=== PATIENT | female | born 1970 | race Caucasian/White ===

== ENCOUNTER 2017-10-19 14:29 | Outpatient (CLI) | payer MEDICAID ==
[2017-10-19 17:43] LABS: BASOPHILS # (AUTO) 0.1 10^3/uL (0.0-0.1); EOSINOPHILS # (AUTO) 0.1 10^3/uL (0.0-0.7); EOSINOPHILS % (AUTO) 1.7 %; HGB - HEMOGLOBIN 12.8 g/dL (12.0-16.0); LYMPHOCYTES # (AUTO) 2.2 10^3/uL (1.5-3.5); LYMPHOCYTES % (AUTO) 29.1 %; MEAN CORPUSCULAR HEMOGLOBIN 29.8 pg (27.0-31.0); MEAN CORPUSCULAR VOLUME 90.3 fL (81.0-99.0); MONOCYTES # (AUTO) 0.4 10^3/uL (0.0-1.0); MONOCYTES % (AUTO) 5.3 %; NEUTROPHILS # (AUTO) 4.7 10^3/uL (1.5-6.6); NEUTROPHILS % (AUTO) 62.9 %; PLT - PLATELET COUNT 257 10^3/uL (130-450); RED BLOOD COUNT 4.31 10^6/uL (4.20-5.40); RED CELL DISTRIBUTION WIDTH 12.9 % (12.0-15.0); WHITE BLOOD COUNT 7.5 x10^3/uL (4.8-10.8)
[2017-10-19 18:25] LABS: HB2 TOTAL 13.7 g/dL; HEMOGLOBIN A1C 1.12 g/dL; HEMOGLOBIN A1C % 9.6 % (4.6-6.2)
[2017-10-19 19:27] LABS: ALBUMIN 3.7 g/dL (3.2-5.5); ALBUMIN/GLOBULIN RATIO 1.1 (1.0-2.2); ALKALINE PHOSPHATASE 46 IU/L (42-121); ALT ALANINE AMINOTRANSFERASE 29 IU/L (10-60); AST ASPARTATE AMINOTRANSFERASE 22 IU/L (10-42); BILIRUBIN,TOTAL 0.4 mg/dL (0.2-1.0); BUN - BLOOD UREA NITROGEN 12 mg/dL (6-20); CALCIUM 8.7 mg/dL (8.5-10.3); CARBON DIOXIDE - CO2 28 mmol/L (21-32); CHLORIDE 102 mmol/L (101-111); CREATININE 0.7 mg/dL (0.4-1.0); GFR - MDRD 90 (>89); GLUCOSE 251 mg/dL (70-100); SODIUM 137 mmol/L (135-145); TOTAL PROTEIN 7.1 g/dL (6.7-8.2)
== END 2017-10-19 14:30 | disposition home or self-care (01) ==
LOC: LAB.F 14:29
PROVIDERS: ATTEND Nurse Practitioner Family
DX: E11.9 Type 2 diabetes mellitus without complications (principal)
CPT/HCPCS: 36415; 80053; 82043; 83036; 84443; 85025

== ENCOUNTER 2018-01-16 09:53 | Outpatient (CLI) | payer MEDICAID ==
[2018-01-16 19:23] LABS: HB2 TOTAL 14.1 g/dL; HEMOGLOBIN A1C 1.04 g/dL; HEMOGLOBIN A1C % 8.9 % (4.6-6.2)
[2018-01-16 19:26] LABS: ALBUMIN 3.9 g/dL (3.2-5.5); ALBUMIN/GLOBULIN RATIO 1.2 (1.0-2.2); ALKALINE PHOSPHATASE 54 IU/L (42-121); ALT ALANINE AMINOTRANSFERASE 21 IU/L (10-60); AST ASPARTATE AMINOTRANSFERASE 17 IU/L (10-42); BILIRUBIN,TOTAL 0.4 mg/dL (0.2-1.0); BUN - BLOOD UREA NITROGEN 11 mg/dL (6-20); CALCIUM 8.7 mg/dL (8.5-10.3); CARBON DIOXIDE - CO2 28 mmol/L (21-32); CHLORIDE 101 mmol/L (101-111); CHOL/HDL RATIO 6.2 (<4.4); CHOLESTEROL 216 mg/dL; CREATININE 0.6 mg/dL (0.4-1.0); GFR - MDRD 108 (>89); GLUCOSE 177 mg/dL (70-100); HDL CHOLESTEROL 35 mg/dL; LDL CHOLESTEROL,CALCULATED 135 mg/dL; LDL/HDL RATIO 3.9 (<4.4); SODIUM 136 mmol/L (135-145); TOTAL PROTEIN 7.2 g/dL (6.7-8.2); VLDL CHOLESTEROL 46 mg/dL
== END 2018-01-16 09:54 | disposition home or self-care (01) ==
LOC: LAB.F 09:53
PROVIDERS: ATTEND Nurse Practitioner Family
DX: E11.9 Type 2 diabetes mellitus without complications (principal)
CPT/HCPCS: 36415; 80053; 80061; 83036; 83721

== ENCOUNTER 2018-02-17 10:18 | Emergency (ER) | payer MEDICAID ==
--- NOTE | 2018-02-17 10:49 | ED Physician Documentation ---
PD HPI ABD PAIN - Stated complaint Stated Complaint: LOWER ABD PX - Chief complaint Chief Complaint: Abd Pain - History obtained from History obtained from: Patient - History of Present Illness Timing - onset: Yesterday Timing - duration: Days (1) Timing - details: Gradual onset, Still present Quality: Sharp, Pain Location: RLQ Radiation: Lower back Improved by: Laying still Worsened by: Breathing, Position, Palpation Associated symptoms: No: Fever, Nausea, Vomiting, Loss of appetite Similar symptoms before: Has not had sx before Recently seen: Not recently seen Review of Systems Constitutional: denies: Fever Eyes: denies: Decreased vision Ears: denies: Ear pain Nose: denies: Congestion Throat: denies: Sore throat Cardiac: denies: Chest pain / pressure Respiratory: denies: Dyspnea, Cough GI: reports: Abdominal Pain, Nausea : denies: Dysuria, Frequency Skin: denies: Rash Musculoskeletal: denies: Neck pain, Back pain, Extremity pain PD PAST MEDICAL HISTORY - Past Medical History Cardiovascular: Hypertension Respiratory: Asthma Endocrine/Autoimmune: Type 1 diabetes : Nocturia HEENT: None Psych: Depression - Past Surgical History 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 HEENT: Tonsil/Adenoidectomy - Present Medications Home Medications: Ambulatory Orders Medication Instructions Recorded Confirmed Insulin Glargine,Hum.rec.anlog 70 unit SQ QDBREAKFAST 01/21/14 12/20/14 [Lantus] Tramadol HCl [Ultram] 50 mg PO Q4-6H 01/21/14 12/20/14 Losartan [Cozaar] 25 mg PO DAILY 12/20/14 12/20/14 Linton-3 Fatty Acids [Fish Oil] 500 mg PO DAILY 12/20/14 12/20/14 Cyclobenzaprine [Flexeril] 10 mg PO 02/17/18 Furosemide [Lasix] 25 mg PO 02/17/18 Paroxetine HCl [Paxil] 100 mg PO 02/17/18 oxyCODONE/ACET 5/325 [Percocet 5 1 - 2 each PO Q4-6H PRN #20 tablet 02/17/18 mg/325 mg] - Allergies Allergies/Adverse Reactions: Allergies Allergy/AdvReac Type Severity Reaction Status Date / Time latex Allergy Intermediate Rash Verified 02/17/18 10:25 Sulfa (Sulfonamide Allergy Rash Verified 02/17/18 10:25 Antibiotics) acetaminophen [From Vicodin] AdvReac Emesis Verified 02/17/18 10:25 codeine AdvReac Emesis Verified 02/17/18 10:25 hydrocodone bitartrate * AdvReac Emesis Verified 12/20/14 14:59 [From Vicodin] - Social History Does the pt smoke?: No Smoking Status: Never smoker PD ED PE NORMAL - Vitals Vital signs reviewed: Yes (hypertensive ) - General General: Alert and oriented X 3, No acute distress, Well developed/nourished - HEENT HEENT: Atraumatic, PERRL, EOMI - Neck Neck: Supple, no meningeal sign - Cardiac Cardiac: RRR, No murmur - Respiratory Respiratory: No respiratory distress, Clear bilaterally - Abdomen Abdomen: Soft, Other (RLQ tenderness to palpation with referred tenderness. There is no gaurding ) - Back Back: No CVA TTP, No spinal TTP - Derm Derm: Normal color, Warm and dry, No rash - Extremities Extremities: No deformity, No edema - Neuro Neuro: No motor deficit, No sensory deficit Eye Opening: Spontaneous Motor: Obeys Commands Verbal: Oriented GCS Score: 15 - Psych Psych: Normal mood, Normal affect Results - Vitals Vitals: Vital Signs - 24 hr 02/17/18 02/17/18 02/17/18 10:23 12:38 13:23 Temperature 35.9 C L Heart Rate 78 71 64 Respiratory 20 20 16 Rate Blood Pressure 172/82 H 159/70 H 155/76 H O2 Saturation 99 99 99 Oxygen O2 Source Room air - Labs Labs: Laboratory Tests 02/17/18 02/17/18 02/17/18 10:50 10:50 10:50 WBC 6.5 RBC 4.58 Hgb 13.5 Hct 40.0 MCV 87.4 MCH 29.6 MCHC 33.9 RDW 13.6 Plt Count 272 MPV 7.8 L Neut # (Auto) 3.9 Lymph # (Auto) 1.9 Caldwell # (Auto) 0.4 Eos # (Auto) 0.1 Baso # (Auto) 0.1 Absolute Nucleated RBC 0.01 Nucleated RBC % 0.1 Sodium 138 Potassium 4.0 Chloride 102 Carbon Dioxide 29 Anion Gap 7.0 BUN 16 Creatinine 0.7 Estimated GFR (MDRD) 90 Glucose 203 H Calcium 9.7 Total Bilirubin 0.7 AST 20 ALT 23 Alkaline Phosphatase 55 Total Protein 7.6 Albumin 4.1 Globulin 3.5 Albumin/Globulin Ratio 1.2 Lipase 42 Urine Color YELLOW Urine Clarity HAZY Urine pH 5.5 Ur Specific Burt >=1.030 H Urine Protein 100 H Urine Glucose (UA) 100 H Urine Ketones NEGATIVE Urine Occult Blood NEGATIVE Urine Nitrite NEGATIVE Urine Bilirubin NEGATIVE Urine Urobilinogen 0.2 (NORMAL) Ur Leukocyte Esterase NEGATIVE Urine RBC None Seen Urine WBC 0-3 Ur Squamous Epith Cells RARE Squamous Urine Bacteria Rare Urine Mucus Few Strands Ur Microscopic Review INDICATED Urine Culture Comments NOT INDICATED - Rads (name of study) CT abdomen and pelvis with Radiology: Prelim report reviewed (Impression: 1. Right corpus luteal 1.6 cm cyst. 2 Appendix not identified but no periapical inflammatory changes. 3 Hepatomegaly.), EMP read indepedently, See rad report PD MEDICAL DECISION MAKING - ED course Complexity details: reviewed old records, reviewed results, re-evaluated patient , considered differential, d/w patient ED course: 48-year-old female with right lower quadrant abdominal pain has been eating well and CT scan does not show the appendix. She does not have any apical inflammatory changes. She does have evidence of a right corpus luteal cyst. She is administered Toradol 30 mg intravenously. Departure - Departure Disposition: 01 Home, Self Care Clinical Impression: Cyst of ovary Qualifiers: Laterality: right Qualified Code(s): N83.201 - Unspecified ovarian cyst, right side Condition: Stable Instructions: ED Cyst Ovarian Follow-Up: Juju Mann ARNP [Primary Care Provider] - Prescriptions: oxyCODONE/ACET 5/325 [Percocet 5 mg/325 mg] 1 - 2 each PO Q4-6H PRN #20 tablet PRN Reason: Pain Forms: Activity restrictions Discharge Date/Time: 02/17/18 13:31
[2018-02-17 10:58] LABS: BASOPHILS # (AUTO) 0.1 10^3/uL (0.0-0.1); BASOPHILS % (AUTO) 1.1 %; BILIRUBIN,URINE NEGATIVE (NEGATIVE); CLARITY,URINE HAZY (CLEAR); EOSINOPHILS # (AUTO) 0.1 10^3/uL (0.0-0.7); EOSINOPHILS % (AUTO) 1.5 %; GLUCOSE, URINE (UA) 100 mg/dL (NEGATIVE); HGB - HEMOGLOBIN 13.5 g/dL (12.0-16.0); KETONES,URINE (UA) NEGATIVE (NEGATIVE); LEUKOCYTE ESTERASE, URINE NEGATIVE (NEGATIVE); LYMPHOCYTES # (AUTO) 1.9 10^3/uL (1.5-3.5); MEAN CORPUSCULAR HEMOGLOBIN 29.6 pg (27.0-31.0); MEAN CORPUSCULAR HGB CONC 33.9 g/dL (32.0-36.0); MEAN CORPUSCULAR VOLUME 87.4 fL (81.0-99.0); MEAN PLATELET VOLUME 7.8 fL (7.9-10.8); MONOCYTES # (AUTO) 0.4 10^3/uL (0.0-1.0); MONOCYTES % (AUTO) 6.9 %; NEUTROPHILS # (AUTO) 3.9 10^3/uL (1.5-6.6); NEUTROPHILS % (AUTO) 60.5 %; NITRITE,URINE NEGATIVE (NEGATIVE); OCCULT BLOOD,URINE NEGATIVE (NEGATIVE); PH,URINE 5.5 PH (5.0-7.5); PLT - PLATELET COUNT 272 10^3/uL (130-450); PROTEIN,URINE 100 mg/dL (NEGATIVE); RED BLOOD COUNT 4.58 10^6/uL (4.20-5.40); RED CELL DISTRIBUTION WIDTH 13.6 % (12.0-15.0); UROBILINOGEN,URINE 0.2 (NORMAL) E.U./dL (NORMAL); WHITE BLOOD COUNT 6.5 x10^3/uL (4.8-10.8)
[2018-02-17 11:13] LABS: BACTERIA,URINE Rare /HPF (None Seen); MUCUS,URINE Few Strands; RBC,URINE None Seen /HPF (0-5); SQUAMOUS EPITHELIAL CELL,UR RARE Squamous (<= Few)
[2018-02-17 11:16] LABS: ALBUMIN 4.1 g/dL (3.2-5.5); ALBUMIN/GLOBULIN RATIO 1.2 (1.0-2.2); BILIRUBIN,TOTAL 0.7 mg/dL (0.2-1.0); CALCIUM 9.7 mg/dL (8.5-10.3); CREATININE 0.7 mg/dL (0.4-1.0); TOTAL PROTEIN 7.6 g/dL (6.7-8.2)
[2018-02-17] MEDS ORDERED: IOPAMIDOL-300 100 ML VIAL ONE (11:16)
[2018-02-17] MEDS ORDERED: IOPAMIDOL-300 100 ML VIAL IVP ONE (12:00)
[2018-02-17] MEDS ORDERED: KETOROLAC 60 MG/2 ML VIAL IVP STA (12:33)
--- NOTE | 2018-02-17 12:41 | CT Report ---
EXAM: CT ABDOMEN AND PELVIS EXAM DATE: 02/17/2018 12:02 PM. CLINICAL HISTORY: RLQ pain/tenderness. COMPARISONS: None. TECHNIQUE: Routine helical CT imaging was performed through the abdomen and pelvis. IV contrast: 100 cc Isovue-300. Enteric contrast: No. Reconstructions: Coronal and sagittal. In accordance with CT protocol optimization, one or more of the following dose reduction techniques w ere utilized for this exam: automated exposure control, adjustment of mA and/or KV based on patient s ize, or use of iterative reconstructive technique. FINDINGS: Lung Bases: Unremarkable. Elevated right hemidiaphragm Liver: Enlarged 20 cm. Gallbladder/Bile Ducts: Post cholecystectomy Spleen: Normal. Pancreas: Normal. Adrenal Glands: Normal. Kidneys: Normal. No masses or hydronephrosis. Peritoneal Cavity/Bowel: Tiny fat-containing umbilical hernia. No free fluid, free air or adenopathy. No masses or acute inflammatory process. Appendix is not identified but no pericecal inflammatory ch anges. Pelvic Organs: Right corpus luteal 1.6 cm cyst. Bladder unremarkable. Uterus unremarkable. Vasculature: No aneurysms or other significant abnormality. Bones: DJD spine Other: None. IMPRESSION: 1. Right corpus luteal 1.6 cm cyst. 2. Appendix not identified but no pericecal inflammatory changes. 3. Hepatomegaly RADIA Referring Provider Line: [phone] SITE ID: [id number]
[2018-02-17 13:24] VITALS: BP 155/76
== END 2018-02-17 13:31 | disposition home or self-care (01) ==
LOC: ED 10:18
DX: N83.201 Unspecified ovarian cyst, right side (principal)
CPT/HCPCS: 36415; 74177; 80053; 81001; 83690; 85025; 96374; 99283; 99284; Q9967; 81003; 87086

== ENCOUNTER 2018-02-21 08:00 | Outpatient (CLI) | payer MEDICAID | END 2018-02-21 08:01 | disposition home or self-care (01) | LOC: LAB.R 08:00 | PROVIDERS: ATTEND Nurse Practitioner Obstetrics & Gynecology | DX: N89.9 Noninflammatory disorder of vagina, unspecified (principal) | CPT/HCPCS: 87480; 87510; 87660 ==

== ENCOUNTER 2018-02-21 21:57 | Outpatient (CLI) | payer MEDICAID ==
--- NOTE | 2018-02-21 23:06 | Ultrasound Report ---
EXAM: PELVIC ULTRASOUND EXAM DATE: 02/21/2018 10:13 PM. CLINICAL HISTORY: IRREGULAR MENSTRUATION. COMPARISON: None. TECHNIQUE: Realtime transabdominal pelvic scan performed to identify the uterus and adnexa and as an overview of other pelvic structures, followed by transvaginal scan to provide greater detail of the u terus and adnexa, with static image documentation. FINDINGS: Uterus: 11.1 x 6.4 x 5.9 cm, volume 220 cc. Anteverted position. Normal overall size and echotexture. Masses: None. Endometrium: 14 mm. Normal. Cervix: Unremarkable. Right Ovary: 4.0 x 3.5 x 2.4 cm, volume 12 cc. Normal echotexture and blood flow. Left Ovary: 2.5 x 2.4 x 2.2 cm, volume 7 cc. Normal echotexture and blood flow. Free Fluid: None. Other: None. IMPRESSION: Normal pelvic ultrasound. RAD[facility] The above findings were discussed with Dr Esteban Dr by Dr. Sly Vizcaino at 23:04 hrs on 02/21/18. Referring Provider Line: [phone] SITE ID: [id number]
--- NOTE | 2018-02-21 23:06 | Ultrasound Preliminary Report ---
Exam: US PELVIC W/TRANSVAGINAL IMPRESSION: Normal pelvic ultrasound. RADIA The above findings were discussed with Dr Esteban Dr by Dr. Sly Vizcaino at 23:04 hrs on 02/21/18. SITE ID: [id number]
== END 2018-02-21 21:58 | disposition home or self-care (01) ==
LOC: DI 21:57
PROVIDERS: ATTEND Nurse Practitioner Obstetrics & Gynecology
DX: N92.1 Excessive and frequent menstruation with irregular cycle (principal); N89.9 Noninflammatory disorder of vagina, unspecified
CPT/HCPCS: 76830; 76856; 87480; 87510; 87660

== ENCOUNTER 2018-02-28 08:00 | Outpatient (CLI) | payer MEDICAID | END 2018-02-28 08:01 | disposition home or self-care (01) | LOC: LAB.R 08:00 | PROVIDERS: ATTEND Obstetrics & Gynecology | DX: N89.8 Other specified noninflammatory disorders of vagina (principal) | CPT/HCPCS: 87480; 87510; 87660 ==

== ENCOUNTER 2018-02-28 17:39 | Outpatient (CLI) | payer MEDICAID ==
[2018-02-28 18:17] LABS: BASOPHILS # (AUTO) 0.1 10^3/uL (0.0-0.1); BASOPHILS % (AUTO) 1.5 %; EOSINOPHILS # (AUTO) 0.1 10^3/uL (0.0-0.7); EOSINOPHILS % (AUTO) 1.3 %; HGB - HEMOGLOBIN 13.6 g/dL (12.0-16.0); LYMPHOCYTES # (AUTO) 2.5 10^3/uL (1.5-3.5); LYMPHOCYTES % (AUTO) 26.4 %; MEAN CORPUSCULAR HGB CONC 33.5 g/dL (32.0-36.0); MEAN CORPUSCULAR VOLUME 89.3 fL (81.0-99.0); MEAN PLATELET VOLUME 7.9 fL (7.9-10.8); MONOCYTES # (AUTO) 0.6 10^3/uL (0.0-1.0); MONOCYTES % (AUTO) 6.2 %; NEUTROPHILS % (AUTO) 64.6 %; PLT - PLATELET COUNT 270 10^3/uL (130-450); RED BLOOD COUNT 4.54 10^6/uL (4.20-5.40); RED CELL DISTRIBUTION WIDTH 13.2 % (12.0-15.0); WHITE BLOOD COUNT 9.3 x10^3/uL (4.8-10.8)
[2018-02-28 18:37] LABS: ALBUMIN 3.9 g/dL (3.2-5.5); ALBUMIN/GLOBULIN RATIO 1.1 (1.0-2.2); BILIRUBIN,TOTAL 0.5 mg/dL (0.2-1.0); CALCIUM 9.6 mg/dL (8.5-10.3); CREATININE 0.8 mg/dL (0.4-1.0); TOTAL PROTEIN 7.4 g/dL (6.7-8.2)
[2018-02-28 18:56] LABS: HCG UR QUAL NEGATIVE
== END 2018-02-28 17:40 | disposition home or self-care (01) ==
LOC: LAB 17:39
PROVIDERS: ATTEND Nurse Practitioner Family
DX: Z01.818 Encounter for other preprocedural examination (principal); N92.1 Excessive and frequent menstruation with irregular cycle; N89.8 Other specified noninflammatory disorders of vagina
CPT/HCPCS: 36415; 80053; 81025; 85025; 86850; 86900; 86901; 87480; 87510; 87660; 93005

== ENCOUNTER 2018-03-01 08:03 | Day surgery (SDC) | payer MEDICAID ==
[~2018-03-01 08:03] MED LIST: ceFAZolin 2 GM/50 ML 2 GM/50 ML BAG IV ONE; cefOXitin 2 GM in SODIUM CHLORIDE 0.9% MINIBAG 100 ML IV ONE
[2018-03-01] MEDS ORDERED: LACTATED RINGERS 1,000 ML IV ONE ×2 (08:09→10:35)
[2018-03-01 08:35] LABS: HCG UR QUAL NEGATIVE
--- NOTE | 2018-03-01 09:01 | PREOP HISTORY & PHYSICAL ---
DATE OF SERVICE: 03/01/2018 Physician: Masoud Orellana MD IDENTIFICATION: A 48-year-old G1, P1 female whose last menstrual period was December 22. CHIEF COMPLAINT: Heavy irregular painful vaginal bleeding. HISTORY OF PRESENT ILLNESS: The patient states roughly 10 years ago, she has had difficulty with heavy bleeding. She will need to change a pad or tampon on an hourly basis. She will pass clots the size of a kiwi. She will flow for 7 days. She cannot predict her bleeding at this time. With her bleeding, she notes cramping which is roughly a 7/10. She will need to sleep with a pad. She also is utilizing incontinence bed pads because of her heavy bleeding. She will sometimes have to stop work because of her heavy bleeding and her pain. She has tried Advil, Motrin as well as Tylenol with minimal results. She does have a history of having lichen sclerosus atrophicus. She is unknown as to whether she has had JESSICA in the past. The patient has a history of hypertension as well as type 2 diabetes. She has a BMI of 44.6. She has had an ultrasound, which was normal without evidence of increased endometrial thickening. PAST MEDICAL HISTORY: Positive for fibromyalgia, hypertension, type 2 diabetes, depression, as well as lichen sclerosus. She has a history of an irregular heartbeat. PAST SURGICAL HISTORY: Laparoscopic cholecystectomy, tonsillectomy, and adenoidectomy. She has also had an ex-lap with diagnosis of polycystic ovary disease. CURRENT MEDICATIONS 1. Lantus 75 mg daily. 2. Losartan 100 mg daily. 3. Zoloft 100 mg daily. 4. Hydrochlorothiazide 25 mg daily. ALLERGIES 1. CODEINE. 2. LATEX. 3. VICODIN. 4. SULFA. HABITS: The patient denies use of all alcohol, tobacco or street addictive drugs. She states she does take tetrahydrocannabinol, admits to yearly use. SOCIAL HISTORY: The patient is . She states her partner of 16 years committed suicide. She also has a daughter who has attempted suicide. FAMILY HISTORY: Positive for depression, as well as fibromyalgia. She states her sisters and mother have had hysterectomies for fibroids. REVIEW OF SYSTEMS: Only positive for diarrhea at this time. PHYSICAL EXAMINATION GENERAL: The patient is an obese female. Her BMI is 44.6. VITAL SIGNS: Blood pressure is 122/82. HEENT: Pupils are equal and round. Extraocular muscles are intact. Mouth is clear. NECK: Somewhat corpulent. BACK: No spinal or CVA tenderness noted. LUNGS: Lung cohen are clear without rales or wheezes. HEART: Regular rate and rhythm and distant. ABDOMEN: Scars from previous laparoscopic cholecystectomy. It is very corpulent. There are no palpable masses; however, the abdomen limits the accuracy of this. PELVIC: Speculum examination reveals a cervix which appears to be normal. The sidewalls do not show any bleeding at this time; however, it is compatible with having a bacterial vaginosis or having a trich. Internal examination revealed uterus which is tender. The adnexa are not palpable, neither is the uterus. ASSESSMENT AND PLAN: A 48-year-old G1, P1 female with heavy vaginal bleeding, which is irregular. She has a history of diabetes, as well as hypertension. Body mass index is 44.6. This puts her at increased risk for endometrial cancer. Ultrasound, however, is normal at this time. At this time, we are planning to do a hysteroscopy with dilatation and curettage. Risks and benefits have been explained to the patient including those but not limited to bleeding, infection, injury to pelvic organs which include the uterus, tubes, ovaries, bowel, bladder, and ureters. She is aware of the potential for deep venous thrombosis with pulmonary embolism as well as postop adhesion which could cause pain, bowel obstruction, and infertility. TD: 02/28/2018 16:58
[2018-03-01] MEDS ORDERED: SCOPOLAMINE PATCH TOP ONE (09:19)
[2018-03-01] MEDS ORDERED: metroNIDAZOLE 500 MG/100 ML 500 MG/100 ML BAG ONE (10:06)
[2018-03-01] MEDS ORDERED: ePHEDrine 50 MG/ML AMP IVP ONE (10:53)
[2018-03-01] MEDS ORDERED: PROPOFOL 200 MG/20 ML VIAL IVP ONE (10:53)
[2018-03-01] MEDS ORDERED: SUCCINYLCHOLINE 200 MG/10 ML VIAL IVP ONE (10:53)
[2018-03-01] MEDS ORDERED: fentaNYL 100 MCG/2 ML VIAL IVP ONE (10:53)
[2018-03-01] MEDS ORDERED: MIDAZOLAM 2 MG/2 ML VIAL IVP ONE (10:53)
[2018-03-01] MEDS ORDERED: LIDOCAINE-PF 4% 5 ML AMP SUBQ ONE (10:53)
[2018-03-01] MEDS ORDERED: ONDANSETRON 4 MG/2 ML VIAL IVP ONE (10:53)
[2018-03-01] MEDS ORDERED: DEXAMETHASONE 4 MG/ML VIAL IVP ONE (10:53)
[2018-03-01] MEDS: fentaNYL 100 MCG/2 ML VIAL ONE ×2 (11:28→11:39)
[2018-03-01 12:11] VITALS: BP 137/59
--- NOTE | 2018-03-01 14:56 | OPERATIVE REPORT ---
DATE OF SERVICE: 03/01/2018 Physician: Masoud Orellana MD PREOPERATIVE DIAGNOSES 1. Menorrhagia. 2. Diabetes. 3. Hypertension. 4. Body mass index of 44.6. POSTOPERATIVE DIAGNOSIS: 1. Endometrial polyp. 2. Menorrhagia. 3. Diabetes. 4. Hypertension. 5. Body mass index of 44.6. PROCEDURE PERFORMED: Hysteroscopy with dilatation, endometrial curettage, as well as removal of endometrial polyp. SURGEON: Masoud Orellana M.D. ANESTHESIA: General via endotracheal tube with Arron Mackey CRNA. FINDINGS: Small left anterior endometrial polyp. COMPLICATIONS: None. ESTIMATED BLOOD LOSS: 100 mL. DESCRIPTION OF PROCEDURE: Following that adequate endotracheal anesthesia, patient was placed in the dorsal lithotomy position in [facility]. At this point, pelvic examination under anesthesia was performed; however, the abdominal wall thickness limited the ability to palpate the uterus, tubes or ovaries. She was prepped and draped in the usual fashion. A timeout was performed, at which time patient was identified as well as concerns addressed. A speculum was placed in the vagina, and there was some difficulty visualizing the cervix. There was in the posterior vagina an area which showed a ridge of tissue. The cervix was eventually visualized following placing a Sanjiv as well as a Saldivar retractor, grasping the posterior portion. Then, the uterus was sounded to 7 cm. It was then progressively dilated up to 6 mm. At this time, a MyoSure was placed without difficulty. The entire endometrial cavity was visualized, including the cornus. Photographs were taken. There was an anterior polyp on the left-hand side, which was noted. The MyoSure was then inserted and the polyp was removed as well as the endometrial tissue, doing essentially a curettage with the MyoSure. The endocervical canal was also removed of any tissue. The total fluid deficit was 400 mL of normal saline. The cervix was released from the single-tooth tenaculum, and there was some bleeding; however, this resolved spontaneously. Patient tolerated the procedure well and was taken to recovery in stable condition. Sponge and needle counts were correct. TD: 03/01/2018 11:35 [facility]
== END 2018-03-01 08:04 | disposition home or self-care (01) ==
LOC: SDS 08:03
PROVIDERS: ATTEND Obstetrics & Gynecology
PROC: 0UDB7ZX Extraction of Endometrium, Via Natural or Artificial Opening, Diagnostic (ICD-10-PCS; 2018-03-01)
PROC: 0UB98ZX Excision of Uterus, Via Natural or Artificial Opening Endoscopic, Diagnostic (ICD-10-PCS; principal; 2018-03-01 09:30)
DX: N92.0 Excessive and frequent menstruation with regular cycle (principal); N84.0 Polyp of corpus uteri; E11.9 Type 2 diabetes mellitus without complications; I10 Essential (primary) hypertension; Z68.41 Body mass index [BMI] 40.0-44.9, adult; M79.7 Fibromyalgia; E66.9 Obesity, unspecified; F32.9 Major depressive disorder, single episode, unspecified
CPT/HCPCS: 58558; 81025; J0330; J0690; J3490; J7120; 88305

== ENCOUNTER 2018-03-09 08:00 | Outpatient (CLI) | END 2018-03-09 08:01 | disposition home or self-care (01) ==

== ENCOUNTER 2018-03-28 10:01 | Outpatient (CLI) | payer MEDICAID ==
[2018-03-28 11:37] LABS: FOLLICLE STIMULATING HORMONE 2.69 mIU/mL
[2018-03-28 11:38] LABS: LUTEINIZING HORMONE 3.38 mIU/mL
== END 2018-03-28 10:02 | disposition home or self-care (01) ==
LOC: LAB 10:01
PROVIDERS: ATTEND Obstetrics & Gynecology
DX: N92.1 Excessive and frequent menstruation with irregular cycle (principal)
CPT/HCPCS: 36415; 82670; 83001; 83002

== ENCOUNTER 2018-06-08 13:57 | Outpatient (CLI) | payer MEDICAID ==
--- NOTE | 2018-06-08 17:22 | Ultrasound Report ---
Reason: RIGHT BREAST Procedure Date: 06/08/2018 Accession Number: [id number] / [id number] Procedure: US - Breast Unilateral Limited CPT Code: FULL RESULT: EXAM: Breast Unilateral Limited DATE: 06/08/2018 4:35 PM CLINICAL HISTORY: RIGHT BREAST ? COMPARISON: Diagnostic mammogram performed the same day. TECHNIQUE: Targeted ultrasound was performed of the right breast in the area of clinical concern at 8 o'clock and 3 cm distance from the nipple. ?Color Doppler was employed as appropriate. ? FINDINGS: Ductal ectasia without abnormal masses identified. The location corresponds to the patient's filled area of pain. As there was no mammographic finding associated with the patient's area of pain, no correlate is to be made. IMPRESSION: Ductal ectasia. BI-RADS 2 RADIA
--- NOTE | 2018-06-08 17:28 | Mammography Report ---
Reason: DUE FOR BILAT WITH RIGHT BREAST LUMP. Procedure Date: 06/08/2018 Accession Number: [id number] / [id number] Procedure: MARIBELL - Diagnostic Bilat 3D Wilver CPT Code: 40636 FULL RESULT: EXAM: Diagnostic Bilat 3D Wilver DATE: 06/08/2018 2:44 PM CLINICAL HISTORY: 48-year-old female with personal history of left breast duct colectomy who presents with a deep painful lump and swelling in her right breast. TECHNIQUE: Bilateral MLO and cc views were obtained with additional 2-D mammographic technique and tomographic technique. COMPARISON: Unilateral mammogram dated 08/17/2010 is available for comparison. FINDINGS: The breasts demonstrate scattered fibroglandular densities bilaterally. No abnormal masses or calcifications are identified. IMPRESSION: Negative examination RECOMMENDATION: Recommend routine annual Screening mammography unless otherwise clinically indicated. BIRADS CATEGORY 1: Negative STANDARD QUALIFYING STATEMENTS: 1. This examination was not reviewed with the aid of Computer-Aided Detection (CAD). 2. A negative or benign imaging report should not delay biopsy if clinically suspicious findings are present. Consider surgical consultation if warrented. More than 5% of cancers are not identified by imaging. 3. Dense breasts may obscure an underlying neoplasm. 4. This examination was reviewed with the aid of 3D imaging (tomography).
== END 2018-06-08 13:58 | disposition home or self-care (01) ==
LOC: DI 13:57
PROVIDERS: ATTEND Nurse Practitioner Family
DX: N64.4 Mastodynia (principal); N63.0 Unspecified lump in unspecified breast; N60.41 Mammary duct ectasia of right breast
CPT/HCPCS: 76642; 77062

== ENCOUNTER 2018-10-18 11:09 | Outpatient (CLI) | payer MEDICAID ==
[2018-10-18 17:47] LABS: BASOPHILS # (AUTO) 0.1 10^3/uL (0.0-0.1); BASOPHILS % (AUTO) 1.2 %; EOSINOPHILS # (AUTO) 0.1 10^3/uL (0.0-0.7); EOSINOPHILS % (AUTO) 1.7 %; HGB - HEMOGLOBIN 13.7 g/dL (12.0-16.0); LYMPHOCYTES # (AUTO) 1.7 10^3/uL (1.5-3.5); LYMPHOCYTES % (AUTO) 27.4 %; MEAN CORPUSCULAR HEMOGLOBIN 29.4 pg (27.0-31.0); MEAN CORPUSCULAR HGB CONC 32.9 g/dL (32.0-36.0); MEAN CORPUSCULAR VOLUME 89.6 fL (81.0-99.0); MEAN PLATELET VOLUME 9.1 fL (7.9-10.8); MONOCYTES # (AUTO) 0.4 10^3/uL (0.0-1.0); MONOCYTES % (AUTO) 6.1 %; NEUTROPHILS % (AUTO) 63.6 %; PLT - PLATELET COUNT 224 10^3/uL (130-450); RED BLOOD COUNT 4.64 10^6/uL (4.20-5.40); RED CELL DISTRIBUTION WIDTH 13.6 % (12.0-15.0); WHITE BLOOD COUNT 6.3 x10^3/uL (4.8-10.8)
[2018-10-18 18:06] LABS: HB2 TOTAL 14.6 g/dL; HEMOGLOBIN A1C 1.28 g/dL; HEMOGLOBIN A1C % 10.2 % (4.6-6.2)
[2018-10-18 18:23] LABS: ALBUMIN 4.2 g/dL (3.2-5.5); ALBUMIN/GLOBULIN RATIO 1.2 (1.0-2.2); ALKALINE PHOSPHATASE 58 IU/L (42-121); ALT ALANINE AMINOTRANSFERASE 17 IU/L (10-60); AST ASPARTATE AMINOTRANSFERASE 15 IU/L (10-42); BILIRUBIN,TOTAL 0.5 mg/dL (0.2-1.0); BUN - BLOOD UREA NITROGEN 16 mg/dL (6-20); CALCIUM 9.5 mg/dL (8.5-10.3); CARBON DIOXIDE - CO2 28 mmol/L (21-32); CHLORIDE 99 mmol/L (101-111); CHOL/HDL RATIO 6.9 (<4.4); CHOLESTEROL 250 mg/dL; CREATININE 0.8 mg/dL (0.4-1.0); GFR - MDRD 77 (>89); GLUCOSE 291 mg/dL (70-100); HDL CHOLESTEROL 36 mg/dL; LDL CHOLESTEROL,CALCULATED 158 mg/dL; LDL/HDL RATIO 4.4 (<4.4); SODIUM 135 mmol/L (135-145); TOTAL PROTEIN 7.6 g/dL (6.7-8.2); VLDL CHOLESTEROL 56 mg/dL
== END 2018-10-18 11:10 | disposition home or self-care (01) ==
LOC: LAB.F 11:09
PROVIDERS: ATTEND Nurse Practitioner Family
DX: E11.9 Type 2 diabetes mellitus without complications (principal); Z13.6 Encounter for screening for cardiovascular disorders; I10 Essential (primary) hypertension; F32.9 Major depressive disorder, single episode, unspecified
CPT/HCPCS: 36415; 80053; 80061; 82043; 83036; 83721; 84443; 85025

== ENCOUNTER 2018-10-25 17:29 | Outpatient (CLI) | payer MEDICAID | END 2018-10-25 23:59 | disposition home or self-care (01) | LOC: RT.S 17:29 | PROVIDERS: ATTEND Nurse Practitioner Family | DX: R07.89 Other chest pain (principal) | CPT/HCPCS: 93005 ==

== ENCOUNTER 2018-11-01 11:20 | Outpatient (CLI) | payer MEDICAID | END 2018-11-01 11:21 | disposition home or self-care (01) | LOC: DI 11:20 | PROVIDERS: ATTEND Nurse Practitioner Family | DX: R07.89 Other chest pain (principal); I51.7 Cardiomegaly | CPT/HCPCS: 93306 ==

== ENCOUNTER 2018-12-18 11:56 | Emergency (ER) | payer MEDICAID ==
--- NOTE | 2018-12-18 12:31 | ED Physician Documentation ---
History of Present Illness - Stated complaint Stated Complaint: HIGH BP/BLURRY VISION - Chief complaint Chief Complaint: Neuro - History obtained from History obtained from: Patient - History of Present Illness Timing: Yesterday - Additonal information Additional information: Patient is a 48-year-old female with history of hypertension and diabetes, altho ugh well controlled, presenting with almost 2 days of headache. Patient does have remote history of migraines, but states this headache is dissimilar. Patient also describes what seems to be likely pseudotumor cerebri issues in the past. Patient describes full head pain that throbs and occasionally causes blurry vision, although no significant photosensitivity. Patient also complains of pain radiating down towards neck, but without stiff neck or limited range of motion of neck. Patient denies fever, vomiting, abdominal pain, difficulty breathing, or other complaints. Patient was otherwise at her normal state of health prior to onset without known trauma, striking of head, or inciting incident. No particular improving or worsening factors to her symptoms noted. 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: Other : Nocturia HEENT: None Psych: Depression Musculoskeletal: Fibromyalgia Derm: None - Past Surgical History Past Surgical History: Yes General: Cholecystectomy /BABCOCK TESTER: Other HEENT: Tonsil/Adenoidectomy - Present Medications Home Medications: Ambulatory Orders Medication Instructions Recorded Confirmed Insulin Glargine,Hum.rec.anlog 70 unit SQ QDBREAKFAST 01/21/14 12/18/18 [Lantus] Losartan [Cozaar] 100 mg PO DAILY 12/20/14 12/18/18 Sertraline [Zoloft] 100 mg PO DAILY 02/28/18 12/18/18 hydroCHLOROthiazide 25 mg PO DAILY 02/28/18 12/18/18 [Hydrochlorothiazide] Atorvastatin [Lipitor] 1 tab PO DAILY 12/18/18 12/18/18 SUMAtriptan [Imitrex] 1 - 2 tab PO PRN PRN 12/18/18 12/18/18 - Allergies Allergies/Adverse Reactions: Allergies Allergy/AdvReac Type Severity Reaction Status Date / Time latex Allergy Intermediate Rash Verified 12/18/18 12:19 diazepam [From Valium] Allergy Unknown Verified 12/18/18 12:19 Sulfa (Sulfonamide Allergy Rash Verified 12/18/18 12:19 Antibiotics) codeine AdvReac Emesis Verified 12/18/18 12:19 hydrocodone bitartrate * AdvReac Emesis Verified 12/18/18 12:19 [From Vicodin] - Social History Does the pt smoke?: No Smoking Status: Never smoker Does the pt drink ETOH?: No Does the pt have substance abuse?: No - Immunizations Immunizations are current?: Yes - POLST Patient has POLST: No POLST Status: Full Code PD ED PE NORMAL - General General: Alert and oriented X 3, No acute distress, Well developed/nourished - HEENT HEENT: Atraumatic, PERRL (Gross visual acuity intact. No nystagmus.), EOMI, Moist mucous membranes, Pharynx benign - Neck Neck: Supple, no meningeal sign - Cardiac Cardiac: RRR, No murmur - Respiratory Respiratory: No respiratory distress, Clear bilaterally - Abdomen Abdomen: Normal bowel sounds, Soft, Non tender, Non distended - Derm Derm: Normal color, Warm and dry, No rash - Extremities Extremities: No deformity, No tenderness to palpate - Neuro Neuro: Alert and oriented X 3, No motor deficit, No sensory deficit - Psych Psych: Normal mood, Normal affect Results - Vitals Vitals: Vital Signs - 24 hr 12/18/18 12/18/18 12/18/18 12:18 12:59 14:01 Temperature 36.4 C L Heart Rate 80 74 71 Respiratory 18 16 16 Rate Blood Pressure 149/87 H 154/86 H 143/83 H O2 Saturation 96 99 99 12/18/18 14:40 Temperature Heart Rate 71 Respiratory Rate Blood Pressure 124/63 O2 Saturation 94 Oxygen O2 Source Room air - EKG (time done) 1228 Rate: Rate (enter#) (80) Rhythm: NSR PD MEDICAL DECISION MAKING - ED course Complexity details: reviewed old records, reviewed results, re-evaluated patient, considered differential, d/w patient ED course: Most concerning for migraine headache given patient's presentation and physical exam findings. Patient also describes remote history of what sounds like pseudotumor cerebri and given body habitus, this could also be possible. Have lesser suspicion for traumatic intracranial injury given lack of trauma or stroke, particularly given well-controlled hypertension and diabetes. Patient does not exhibit signs of meningitis or encephalitis. However, will obtain CT head to further evaluate. Remainder physical exam relatively unremarkable and do not find evidence of new neurological deficit or systemic illness. Discussed starting medications of migraine cocktail, and patient is amenable to this plan. CT imaging returned without evidence of acute pathology. Upon reevaluation, patient reports near resolution of all her symptoms and is comfortable with discharge plan. Discussed supportive cares, return precautions, as well as follow-up and possible referral to neurology if headaches persist. Patient voiced understanding and is comfortable with discharge plan. Departure - Departure Disposition: Home, Self Care Clinical Impression: Headache Qualifiers: Headache type: unspecified Headache chronicity pattern: acute headache Intractability: not intractable Qualified Code(s): R51 - Headache Condition: Good Instructions: ED Headache Migraine Follow-Up: Juju Mann ARNP [Primary Care Provider] - Within 3 Days Comments: Please continue home medications as previously instructed. May try lkfe-lwg-[id number] medications such as ibuprofen, Tylenol, Excedrin Migraine if have persistent headaches. Also recommend follow-up with primary care physician in the next 2-3 days for reevaluation and discussion of possible referral to neurologist if headaches continue. Return to ED sooner if expands worsening symptoms or other concerns.
[2018-12-18] MEDS ORDERED: ONDANSETRON 4 MG/2 ML VIAL IVP STA (12:40)
[2018-12-18] MEDS ORDERED: SODIUM CHLORIDE 0.9% 1,000 ML IV ONE (12:40)
[2018-12-18] MEDS ORDERED: METOCLOPRAMIDE 10 MG/2 ML VIAL IVP STA (12:41)
[2018-12-18] MEDS ORDERED: diphenhydrAMINE INJ 50 MG/ML VIAL IVP STA (12:42)
--- NOTE | 2018-12-18 13:40 | CT Report ---
Reason: new onset headache with blurry vision Procedure Date: 12/18/2018 Accession Number: [id number] / [id number] Procedure: CT - HEAD WO CPT Code: FULL RESULT: EXAM: CT HEAD EXAM DATE: 12/18/2018 01:21 PM. CLINICAL HISTORY: New onset headache with blurry vision. COMPARISON: None. TECHNIQUE: Multiaxial CT images were obtained from the foramen magnum to the vertex. Reformats: Sagittal and coronal. IV contrast: None. In accordance with CT protocol optimization, one or more of the following dose reduction techniques were utilized for this exam: automated exposure control, adjustment of mA and/or KV based on patient size, or use of iterative reconstructive technique. FINDINGS: Parenchyma: No intraparenchymal hemorrhage. No evidence of mass, midline shift, or CT findings of infarction. Toney-white differentiation is distinct. Extraaxial Spaces: Normal for age. No subdural or epidural collections identified. Ventricles: Normal in size and position. Sinuses and Orbits: Imaged paranasal sinuses, orbits, and mastoids show no significant abnormality. Bones: No evidence of fracture or calvarial defect. Other: None. IMPRESSION: No acute intracranial abnormality or mass. RADIA
[2018-12-18 14:40] VITALS: BP 124/63
== END 2018-12-18 14:59 | disposition home or self-care (01) ==
LOC: ED 11:56
DX: R51 Headache (principal); I10 Essential (primary) hypertension; E10.9 Type 1 diabetes mellitus without complications
CPT/HCPCS: 70450; 93005; 96361; 96374; 96375; 99283; 99284; J1200; J2765

== ENCOUNTER 2019-03-12 09:41 | Outpatient (CLI) | payer MEDICAID ==
[2019-03-12 18:08] LABS: BUN - BLOOD UREA NITROGEN 15 mg/dL (6-20); CALCIUM 9.5 mg/dL (8.5-10.3); CARBON DIOXIDE - CO2 28 mmol/L (21-32); CHLORIDE 103 mmol/L (101-111); CHOL/HDL RATIO 6.6 (<4.4); CHOLESTEROL 257 mg/dL; CREATININE 0.8 mg/dL (0.4-1.0); GFR - MDRD 77 (>89); GLUCOSE 193 mg/dL (70-100); HDL CHOLESTEROL 39 mg/dL; SODIUM 139 mmol/L (135-145)
[2019-03-12 18:35] LABS: LDL CHOLESTEROL,DIRECT 143 mg/dL; LDLD/HDL RATIO 3.7 (<4.4)
== END 2019-03-12 09:42 | disposition home or self-care (01) ==
LOC: LAB.F 09:41
PROVIDERS: ATTEND Internal Medicine Cardiovascular Disease
DX: I10 Essential (primary) hypertension (principal); E78.5 Hyperlipidemia, unspecified
CPT/HCPCS: 36415; 80048; 80061; 83721

== ENCOUNTER 2019-05-30 14:52 | Outpatient (CLI) | payer MEDICAID ==
--- NOTE | 2019-05-30 16:26 | Ultrasound Report ---
Reason: LLQ ABD PAIN Procedure Date: 05/30/2019 Accession Number: [id number] / [id number] Procedure: US - Pelvic Limited or F/U CPT Code: FULL RESULT: EXAM: Limited pelvic ultrasound EXAM DATE: 05/30/2019 03:09 PM. CLINICAL HISTORY: LLQ ABD PAIN. COMPARISON: PELVIC W/TRANSVAGINAL 02/21/2018 10:12 PM. TECHNIQUE: Real-time scanning was performed of the left lower quadrant with static images obtained. FINDINGS: In the left lower quadrant region of pain there is a fat containing reducible hernia lateral to the inferior epigastric artery measuring approximately 4.1 x 2.8 cm with a 1.7 cm neck. No bowel is seen within the hernia. IMPRESSION: 4.1 x 2.8 cm reducible fat-containing left lower quadrant hernia lateral to the inferior epigastric artery. RADIA
== END 2019-05-30 14:53 | disposition home or self-care (01) ==
LOC: DI 14:52
PROVIDERS: ATTEND Physician Assistant Medical
DX: K46.9 Unspecified abdominal hernia without obstruction or gangrene (principal)
CPT/HCPCS: 76857

== ENCOUNTER 2019-06-29 09:09 | Outpatient (CLI) | payer MEDICAID ==
[2019-06-29 18:33] LABS: ALBUMIN 4.1 g/dL (3.2-5.5); ALBUMIN/GLOBULIN RATIO 1.2 (1.0-2.2); ALKALINE PHOSPHATASE 55 IU/L (42-121); ALT ALANINE AMINOTRANSFERASE 22 IU/L (10-60); AST ASPARTATE AMINOTRANSFERASE 15 IU/L (10-42); BILIRUBIN,TOTAL 0.5 mg/dL (0.2-1.0); BUN - BLOOD UREA NITROGEN 16 mg/dL (6-20); CALCIUM 9.4 mg/dL (8.5-10.3); CARBON DIOXIDE - CO2 31 mmol/L (21-32); CHLORIDE 102 mmol/L (101-111); CHOL/HDL RATIO 5.6 (<4.4); CHOLESTEROL 191 mg/dL; CREATININE 0.8 mg/dL (0.4-1.0); GFR - MDRD 77 (>89); GLUCOSE 164 mg/dL (70-100); HDL CHOLESTEROL 34 mg/dL; LDL CHOLESTEROL,CALCULATED 113 mg/dL; LDL/HDL RATIO 3.3 (<4.4); SODIUM 140 mmol/L (135-145); TOTAL PROTEIN 7.4 g/dL (6.7-8.2); VLDL CHOLESTEROL 44 mg/dL
[2019-06-29 18:36] LABS: HB2 TOTAL 12.9 g/dL; HEMOGLOBIN A1C 0.79 g/dL; HEMOGLOBIN A1C % 7.8 % (4.6-6.2)
== END 2019-06-29 09:10 | disposition home or self-care (01) ==
LOC: LAB.S 09:09
PROVIDERS: ATTEND Internal Medicine
DX: E78.5 Hyperlipidemia, unspecified (principal); E11.9 Type 2 diabetes mellitus without complications
CPT/HCPCS: 36415; 80053; 80061; 83036; 83721

== ENCOUNTER 2019-07-23 08:46 | Outpatient (CLI) | payer MEDICAID ==
[2019-07-23 18:28] LABS: ALBUMIN 4.2 g/dL (3.2-5.5); ALBUMIN/GLOBULIN RATIO 1.1 (1.0-2.2); ALKALINE PHOSPHATASE 58 IU/L (42-121); ALT ALANINE AMINOTRANSFERASE 24 IU/L (10-60); AST ASPARTATE AMINOTRANSFERASE 18 IU/L (10-42); BILIRUBIN,TOTAL 0.5 mg/dL (0.2-1.0); BUN - BLOOD UREA NITROGEN 19 mg/dL (6-20); CALCIUM 9.5 mg/dL (8.5-10.3); CARBON DIOXIDE - CO2 29 mmol/L (21-32); CHLORIDE 98 mmol/L (101-111); CHOL/HDL RATIO 6.8 (<4.4); CHOLESTEROL 253 mg/dL; CREATININE 0.9 mg/dL (0.4-1.0); GFR - MDRD 67 (>89); GLUCOSE 227 mg/dL (70-100); HDL CHOLESTEROL 37 mg/dL; SODIUM 136 mmol/L (135-145); TOTAL PROTEIN 7.9 g/dL (6.7-8.2)
[2019-07-23 18:45] LABS: FERRITIN 31.1 ng/mL (11.0-306.8)
[2019-07-23 18:48] LABS: LDL CHOLESTEROL,DIRECT 130 mg/dL; LDLD/HDL RATIO 3.5 (<4.4)
== END 2019-07-23 08:47 | disposition home or self-care (01) ==
LOC: LAB.S 08:46
PROVIDERS: ATTEND Internal Medicine Cardiovascular Disease
DX: E78.5 Hyperlipidemia, unspecified (principal); L64.9 Androgenic alopecia, unspecified
CPT/HCPCS: 36415; 80053; 80061; 82306; 82607; 82728; 83721

== ENCOUNTER 2019-07-31 09:49 | Day surgery (SDC) | payer MEDICAID ==
[2019-07-31] MEDS ORDERED: LACTATED RINGERS 1,000 ML IV ONE ×2 (09:59→12:15)
[2019-07-31] MEDS ORDERED: ceFAZolin 1 GM VIAL ONE (10:02)
[2019-07-31] MEDS ORDERED: LIDOCAINE MPF 1%-EPI 1:200000 30 ML VIAL ONE (10:03)
[2019-07-31] MEDS ORDERED: BUPIVACAINE 0.5% PF 30 ML VIAL ONE (10:03)
[2019-07-31] MEDS ORDERED: SODIUM CHLORIDE 0.9% 10 ML ONE (10:04)
[2019-07-31 10:07] LABS: HCG UR QUAL NEGATIVE
--- NOTE | 2019-07-31 10:09 | ANESTHESIA ---
Pre-Anesthesia VS, & Labs - Diagnosis left inguinal hernia - Procedure left inguinal hernia repair Vital Signs: Temp Pulse Resp BP Pulse Ox 36.5 C 85 18 144/84 H 99 07/31/19 10:00 07/31/19 10:00 07/31/19 10:00 07/31/19 10:00 07/31/19 10:00 Height 5 ft 11 in Weight (kg) 725 kg Body Mass Index 40.4 - Is Patient ?: No (HCG negative) Home Medications and Allergies Home Medications: Ambulatory Orders Albuterol Sulfate [Proair Hfa Inhaler] 2 puffs INH Q4H PRN 07/25/19 Chlorthalidone 25 mg PO DAILY 07/25/19 Clobetasol Propionate/Emoll [Clobetasol Emollient 0.05% Crm] 1 applic TP ONCE PRN 07/25/19 Cyclobenzaprine HCl 10 mg PO TID PRN 07/25/19 Desvenlafaxine Succinate [Pristiq ER] 50 mg PO DAILY 07/25/19 LORazepam [Ativan] 1 mg PO ONCE PRN 07/25/19 Metformin HCl 500 mg PO BID 07/25/19 Rosuvastatin Calcium 5 mg PO DAILY 07/25/19 Spironolactone 25 mg PO BID 07/25/19 Triamcinolone 0.1% Cream [Kenalog 0.1% Cream] 1 applic TOP BID PRN 07/25/19 Valsartan 160 mg PO QPM 07/25/19 lamoTRIgine [LaMICtal] 25 mg PO BID 07/25/19 Insulin Glargine,Hum.rec.anlog [Lantus] 75 unit SQ QDBREAKFAST 01/21/14 Albuterol Sulfate [Proair Hfa Inhaler] 2 puffs INH Q4H PRN 07/25/19 Chlorthalidone 25 mg PO DAILY 07/25/19 Clobetasol Propionate/Emoll [Clobetasol Emollient 0.05% Crm] 1 applic TP ONCE PRN 07/25/19 Cyclobenzaprine HCl 10 mg PO TID PRN 07/25/19 Desvenlafaxine Succinate [Pristiq ER] 50 mg PO DAILY 07/25/19 LORazepam [Ativan] 1 mg PO ONCE PRN 07/25/19 Metformin HCl 500 mg PO BID 07/25/19 Rosuvastatin Calcium 5 mg PO DAILY 07/25/19 Spironolactone 25 mg PO BID 07/25/19 Triamcinolone 0.1% Cream [Kenalog 0.1% Cream] 1 applic TOP BID PRN 07/25/19 Valsartan 160 mg PO QPM 07/25/19 lamoTRIgine [LaMICtal] 25 mg PO BID 07/25/19 Allergies/Adverse Reactions: Allergies Allergy/AdvReac Type Severity Reaction Status Date / Time latex Allergy Intermediate Rash Verified 12/18/18 12:19 adhesive tape Allergy Rash Verified 07/25/19 13:50 Sulfa (Sulfonamide Allergy Emesis Verified 07/25/19 13:50 Antibiotics) codeine AdvReac Nausea Verified 07/25/19 13:50 diazepam [From Valium] AdvReac Nausea Verified 07/25/19 13:50 hydrocodone bitartrate * AdvReac Nausea Verified 07/25/19 13:50 [From Vicodin] Anes History & Medical History - Anesthetic History Anesthesia Complications: reports: Post-Operative Nausea/Vomiting Family history of Anesthesia Complications: Denies Family history of Malignant Hyperthermia: Denies - Medical History Cardiovascular: reports: Hypertension, High cholesterol, Murmur Pulmonary: reports: Asthma (seasonal asthma), Sleep apnea, CPAP use, Other Gastrointestinal: reports: None, Other Urinary: reports: None Neuro: reports: None Musculoskeletal: reports: Osteoarthritis, Fibromyalgia Endocrine/Autoimmune: reports: Type 2 diabetes Blood Disorders: reports: None Skin: reports: Other Smoking Status: Never smoker Psychosocial: reports: Depression, Anxiety - Surgical History General: Cholecystectomy, Colonoscopy Eyes Ears Nose Throat (EENT): Tonsil/Adenoidectomy Gynecologic: Endometrial ablation, Dilation and currettage, Other Results - EKG Results EKG Comparison: Reviewed EKG (old ekg reviewed and looks normal) Exam General: Alert, Oriented x3, Cooperative, No acute distress Dental: WNL Mouth Openin Fingerbreadth Neck Mobility: Normal Mallampati classification: I Thyromental Distance: 4-6 cm Respiratory: Lungs clear, Normal breath sounds, No respiratory distress, No accessory muscle use Cardiovascular: Regular rate, Normal S1, Normal S2, No murmurs Abdomen: Normal bowel sounds, Soft, No tenderness, No hepatospenomegaly, No masses Extremities: No clubbing, No cyanosis, No edema, Normal pulses, No tenderness /swelling Neurological: Normal gait, Normal speech, Strength at 5/5 X4 ext, Normal tone, Sensation intact, Cranial nerves 3-12 NL, Reflexes 2+ Mental/Cognitive Status: Alert/Oriented X3, Normal for patient Cognitive Status: Within normal limits Plan Anesthesia Type: General Consent for Procedure(s) Verified and Reviewed: Yes Code Status: Attempt Resuscitation ASA classification: 2-Mild systemic disease Is this case an emergency?: No
[2019-07-31] MEDS ORDERED: CEFAZOLIN SODIUM IN 0.9 % NACL 2 GM/100 ML BAG IV ONE (10:12)
[2019-07-31] MEDS ORDERED: ROCURONIUM 50 MG/5 ML VIAL IVP ONE (11:24)
[2019-07-31] MEDS ORDERED: PROPOFOL 200 MG/20 ML VIAL IVP ONE (11:24)
[2019-07-31] MEDS ORDERED: GLYCOPYRROLATE 1 MG/5 ML VIAL IVP ONE (11:24)
[2019-07-31] MEDS ORDERED: raNITIdine INJ 25 MG/ML VIAL IV ONE (11:24)
[2019-07-31] MEDS ORDERED: MIDAZOLAM 2 MG/2 ML VIAL IVP ONE (11:24)
[2019-07-31] MEDS ORDERED: SUCCINYLCHOLINE 200 MG/10 ML VIAL IVP ONE (11:24)
[2019-07-31] MEDS ORDERED: fentaNYL 100 MCG/2 ML VIAL IVP ONE (11:24)
[2019-07-31] MEDS ORDERED: diphenhydrAMINE INJ 50 MG/ML VIAL IVP ONE (11:24)
[2019-07-31] MEDS ORDERED: LIDOCAINE-MPF 2% 5 ML VIAL IM ONE (11:24)
[2019-07-31] MEDS ORDERED: ONDANSETRON 4 MG/2 ML VIAL IVP ONE (11:24)
[2019-07-31] MEDS ORDERED: NEOSTIGMINE 1 MG/1 ML 10 ML MDV IVP ONE (11:24)
[2019-07-31] MEDS ORDERED: BUPIVACAINE 0.5% PF 30 ML VIAL INFIL ONE (11:53)
[2019-07-31] MEDS ORDERED: BUPIVACAINE 0.5%-EPI 1:200000 PF 30 ML VIAL SUBQ ONE (11:53)
[2019-07-31] MEDS ORDERED: LIDOCAINE 1%-EPI 1:100000 30 ML MDV SUBQ ONE (11:54)
[2019-07-31] MEDS ORDERED: ONDANSETRON 4 MG/2 ML VIAL IVP PRN (12:34)
[2019-07-31] MEDS ORDERED: oxyCODONE 5 MG TABLET PO PRN (12:34)
[2019-07-31] MEDS ORDERED: ACETAMINOPHEN 325 MG TABLET PO PRN (12:34)
[2019-07-31] MEDS ORDERED: IBUPROFEN 600 MG TABLET PO PRN (12:34)
[2019-07-31] MEDS ORDERED: oxyCODONE 5 MG TABLET ONE (13:33)
--- NOTE | 2019-07-31 14:06 | OPERATIVE REPORT ---
Operative Report - General Procedure Date: 07/31/19 Planned Procedure: Left Inguinal Hernia Repair Pre-Op Diagnosis: Left Inguinal Hernia Procedure Performed: Left Inguinal Hernia Repair Post Op Diagnosis: Left Inguinal Hernia - Procedure Note Primary Surgeon: Lay Anesthesia Provider: LEE Mackey Anesthesia Technique: General ET tube, Local, Regional block Estimated Blood Loss (mL): 10 Findings: Moderate to large direct inguinal hernia Complications: None apparent - Other Other Information/Narrative: After obtaining informed consent, the patient is brought to the operating room and placed in the supine position on the operating table. Following successful induction of general endotracheal anesthesia, appropriate padding of all bony prominences, and placement of appropriate monitors, the left abdomen and groin were prepped and draped in the standard surgical fashion. A timeout was held per scope protocol. All elements of the surgical safety checklist were followed before, during, and after the procedure. We began the operation by infiltrating mixture of local anesthetics medial to the anterior superior iliac spine on the left side to create an ileal inguinal nerve block. Once this was done, we have selected a site in the left lower quadrant just superior and lateral to the pubic tubercle for placement of our operative incision. The site was anesthetized with local anesthetic. The incision was created and carried down through the skin and subcutaneous tissue to eventually reveal the fascia of the external oblique aponeurosis. It is notable that the fascia was quite deep to the skin surface with approximately 20 cm between the surface of the skin and the external oblique aponeurosis. Additional local anesthetic was applied to the aponeurosis and it was opened in the direction of its fibers. The leaflets were reflected medially and laterally revealing the contents of the inguinal canal. We identified the round ligament but did not clearly identify the ilioinguinal nerve. A direct hernia was identified easily. The edges of this hernia were carefully defined and the contents, preperitoneal fat, were eased back into the abdominal cavity. We elected to repair the defect using an extended piece of Prolene hernia system mesh. This was dipped into Ancef containing solution and deployed into the defect. The posterior leaflet was straightened and flattened in the preperitoneal space with care taken to avoid any watering of the mesh or folding. The anterior leaflet was then unfolded. It was attached to Hilton's ligament medially and laterally tucked beneath the external oblique aponeurosis. I elected to tack it laterally as well as medially using interrupted Vicryl suture with air knots. The wound was then checked for hemostasis and irrigated with warm saline solution. As the round ligament had been divided there were no structures passing through the inguinal canal. The external oblique aponeurosis was then closed with a running Vicryl suture. Jada's fascia was closed with a running suture. And Monocryl was placed in the skin. All sponge, needle, and instrument counts were correct at the conclusion of the case. Dermabond was applied to the skin. The patient was allowed to wake from anesthesia without significant difficulty and taken to the postanesthesia care unit in good condition.
[2019-07-31 14:25] VITALS: BP 115/68
== END 2019-07-31 09:50 | disposition home or self-care (01) ==
LOC: SDS 09:49
PROVIDERS: ATTEND Surgery
PROC: 0YU60JZ Supplement Left Inguinal Region with Synthetic Substitute, Open Approach (ICD-10-PCS; principal; 2019-07-31 11:00)
DX: K40.90 Unilateral inguinal hernia, without obstruction or gangrene, not specified as recurrent (principal); E11.9 Type 2 diabetes mellitus without complications; Z79.4 Long term (current) use of insulin; E66.9 Obesity, unspecified; J45.909 Unspecified asthma, uncomplicated; F43.10 Post-traumatic stress disorder, unspecified; E78.5 Hyperlipidemia, unspecified; E28.2 Polycystic ovarian syndrome; Z68.41 Body mass index [BMI] 40.0-44.9, adult; I10 Essential (primary) hypertension; M79.7 Fibromyalgia; R01.1 Cardiac murmur, unspecified; F32.9 Major depressive disorder, single episode, unspecified; F41.9 Anxiety disorder, unspecified; M19.90 Unspecified osteoarthritis, unspecified site; Z79.51 Long term (current) use of inhaled steroids
CPT/HCPCS: 49525; 81025; A9270; C1713; J0330; J0690; J1200; J7120

== ENCOUNTER 2020-06-03 09:02 | Outpatient (CLI) | payer MEDICAID ==
[2020-06-03 15:19] LABS: CREATININE,URINE 236.1 mg/dL; MICROALBUM/CREATININE RATIO,UR 42.4 ug/mg (<30.0)
[2020-06-03 15:34] LABS: ALBUMIN 4.2 g/dL (3.2-5.5); ALBUMIN/GLOBULIN RATIO 1.2 (1.0-2.2); ALKALINE PHOSPHATASE 52 IU/L (42-121); ALT ALANINE AMINOTRANSFERASE 23 IU/L (10-60); AST ASPARTATE AMINOTRANSFERASE 15 IU/L (10-42); BILIRUBIN,TOTAL 0.5 mg/dL (0.2-1.0); BUN - BLOOD UREA NITROGEN 24 mg/dL (6-20); CALCIUM 9.5 mg/dL (8.5-10.3); CARBON DIOXIDE - CO2 26 mmol/L (21-32); CHLORIDE 102 mmol/L (101-111); CHOL/HDL RATIO 3.9 (<4.4); CHOLESTEROL 140 mg/dL; CREATININE 1.1 mg/dL (0.4-1.0); GLUCOSE 208 mg/dL (70-100); HDL CHOLESTEROL 36 mg/dL; LDL CHOLESTEROL,CALCULATED 56 mg/dL; LDL/HDL RATIO 1.6 (<4.4); SODIUM 137 mmol/L (135-145); TOTAL PROTEIN 7.7 g/dL (6.7-8.2); VLDL CHOLESTEROL 48 mg/dL
[2020-06-03 20:15] LABS: HEMOGLOBIN A1c% 8.5 % (4.27-6.07)
== END 2020-06-03 09:03 | disposition home or self-care (01) ==
LOC: LAB.S 09:02
PROVIDERS: ATTEND Family Medicine
DX: E11.9 Type 2 diabetes mellitus without complications (principal); Z79.4 Long term (current) use of insulin; E78.5 Hyperlipidemia, unspecified; L64.9 Androgenic alopecia, unspecified
CPT/HCPCS: 36415; 80053; 80061; 82043; 82306; 82570; 82607; 82728; 83036; 83721

== ENCOUNTER 2020-06-04 19:30 | Outpatient (CLI) | payer MEDICAID | END 2020-06-04 23:59 | disposition home or self-care (01) | LOC: SC 19:30 | PROVIDERS: ATTEND Internal Medicine Pulmonary Disease | DX: G47.33 Obstructive sleep apnea (adult) (pediatric) (principal) | CPT/HCPCS: 95806 ==

== ENCOUNTER 2020-06-18 14:24 | Outpatient (CLI) | payer MEDICAID ==
--- NOTE | 2020-06-18 14:54 | SLEEP CARE CONSULTATION ---
Information from patient questionnaire entered by Nacho Brewster. I have reviewed and concur with the information entered by Nacho Brewster. This document represents the service I personally performed and the decisions made by me, Deidra Aguilar ARNP. History of Present Illness Service Date and Time: 06/18/2020 142 Initial [place] Sleepiness Scale score: 11 (in 2004) Current [place] Sleepiness Scale score: 10 Additional HPI information: JOSE MANUEL MENARD returns for follow up and results of the recently performed home sleep study. Her HST showed her to have moderate obstructive sleep apnea with an average AHI of 16.4 and a rosa elena oxygen saturation of 73.5%. She had a supine AHI 13.9 and a non-supine AHI of 32.7. I explained the pathophysiology behind obstructive sleep apnea. We then spent quite a bit of time discussing different treatment options. For mild obstructive sleep apnea, surgery and oral appliance are alternatives to nasal CPAP therapy but in moderate or severe cases, nasal CPAP is the most effective and reliable treatment. I reviewed the impact of weight changes on sleep apnea and strongly recommended losing weight. Patient is working on getting bariatric surgery. After some discussion, the patient opted to go with the nasal CPAP therapy. Nasal autoCPAP set at 4-15 cmH20 will be ordered with rationale explained. A manual titration study will be ordered if unable to find optimal pressure with office ad justments. I explained how CPAP machine works with sample devices [employer] Dreamstation and [id number] and what to expect when using the machine. Using CPAP every night in order to get used to it was emphasized. Patient advised to put CPAP mask on before getting into bed so as not to fall asleep without CPAP. To assist acclimation to CPAP use, it could also be used for a short time during day while reading or watching TV. The patient was instructed to call the CPAP supplier to discuss any mechanical problem that may occur. If the mask given is uncomfortable or is difficult to keep on through the night even with adjustment, contact the CPAP supplier as many will replace with another mask style if notified before 30 days. If snoring or perceives is not getting enough air or too much air from the machine, notify this office. [facility] patient education PAP tips reviewed and given to patient. Patient does not drink alcohol. Patient was cautioned about risks of drowsy driving until sleepiness symptoms resolve. Patient denies drowsy driving. Sleep Study - Results Type of Sleep Study: Home sleep study Prior sleep studies: Yes Year and Where: 2005 - [facility] Sleep Polysomnography/Home Sleep Study results: Based on 4% Calculation: The AHI4% calculation of 16.4 per hour of recording time was based on a total of 50 scored apneas and 78 scored hypopneas with 4% desaturations. Supine AHI4%: 13.9 per hour. Non-supine AHI4%: 32.7 per hour. Oxygen Summary: Patient's baseline O2 saturation was 96.3 %. The patient spent 14.9 minutes at an oxygen saturation less than 90%, and 3.7 minutes less than 85%. The desaturation index was 18.4 events per hour sleep time. The lowest saturation was 73.5 %. SNORING: The percent of the study time spent snoring was 0.0 %. The Snoring Count was 0 . The Snoring Index was 0.0 . PULSE RATE REVIEW: The mean heart rate was 70 beats per minute. The rate ranged from a low of 34 to a high of 101 beats per minute. DIAGNOSIS CODE: Moderate obstructive sleep apnea G47.33, occurring independently of body position. Moderate desaturations were noted. Allergies and Home Medications Drug allergies reviewed: Yes (sulpha, latex) Home medication list reviewed: Yes (no changes) Review of Systems Review of systems same as previous: Yes (no changes) Physical Exam Heart Rate: 80 O2 Saturation: 98 Height: 5 ft 11 in Weight: 304 lb Body Mass Index: 42.4 BMI Classification: Morbidly Obese Impression and Plan 1. Obstructive Sleep Apnea-Hypopnea Syndrome, moderate, with lowest oxygen saturation of 73.5%. Obviously this is the cause of the patients symptoms of unrefreshed sleep, and excessive daytime sleepiness. Patient has a history of a previous diagnosis of sleep apnea but did not have insurance and has been using old machines that she obtained. She is excited to start using a newer machine. I reviewed with patient that the positive pressure therapy will benefit her hypertension, diabetes, anxiety and depression. As mentioned above, the patient will be started on nasal autoCPAP therapy with pressure set at 4-15 cmH2O. A manual titration study will be completed if unable to find optimal treatment pressure with office adjustments. Compliance guidelines also reviewed. A copy of compliance guidelines will be given for reference at check out. * Nasal auto CPAP therapy, pressure at 4-15 cm H2O. * Attempt to lose weight. * Avoid alcohol consumption near bedtime. * Avoid supine sleep until using CPAP. * The patient is again cautioned about driving until sleepiness completely resolves. * Return one month after CPAP obtained. I will assess response to therapy and compliance at that time. Visit Type: In Office Time Spent with Patient (minutes): 20 Provider Statement: I spent 100% of the Face to Face Visit with the patient with greater than 50% spent counseling the patient and coordination of care.
== END 2020-06-18 14:25 | disposition home or self-care (01) ==
LOC: SC 14:24
PROVIDERS: ATTEND Nurse Practitioner Family
DX: G47.33 Obstructive sleep apnea (adult) (pediatric) (principal); E66.01 Morbid (severe) obesity due to excess calories; Z68.41 Body mass index [BMI] 40.0-44.9, adult
CPT/HCPCS: 99212; 99213

== ENCOUNTER 2020-06-20 12:30 | Emergency (ER) | payer MEDICAID ==
--- NOTE | 2020-06-20 13:32 | ED Physician Documentation ---
History of Present Illness - Stated complaint Stated Complaint: LT SIDE NECK SWELLING/FEMALE - Chief complaint Chief Complaint: General - History obtained from History obtained from: Patient - Additonal information Additional information: 50-year-old female presents to the emergency department with several medical problems. The first is that she is concerned about swelling in the left side of her neck. She denies any recent fevers or chills. She states that nothing makes it better or worse. It is located under the left mandible. She also complains of swelling behind the left knee. Worse with movement and better with rest. No swelling in the remainder of the leg. She also complains of dysuria and urinary frequency. She is concerned about a UTI. She states she was recently diagnosed with stage III chronic kidney disease as well. Review of Systems Ten Systems: 10 systems reviewed and negative Constitutional: denies: Fever, Chills Ears: denies: Ear pain Nose: denies: Rhinorrhea / runny nose, Congestion Throat: denies: Dental pain / toothache, Oral lesions / sores, Sore throat, Swollen tonsils Cardiac: denies: Chest pain / pressure Respiratory: denies: Cough GI: denies: Nausea, Vomiting, Diarrhea Skin: denies: Rash Musculoskeletal: denies: Back pain Neurologic: denies: Headache PD PAST MEDICAL HISTORY - Past Medical History Cardiovascular: Hypertension, Other Respiratory: Asthma Neuro: None Endocrine/Autoimmune: Type 1 diabetes GI: None, 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 : Nocturia, Other HEENT: None Psych: Depression Musculoskeletal: Fibromyalgia Derm: None Other Past Medical History: CKD III - Past Surgical History Past Surgical History: Yes General: Cholecystectomy /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: Endometrial ablation, Dilation and currettage, Other HEENT: Tonsil/Adenoidectomy - Present Medications Home Medications: Ambulatory Orders Medication Instructions Recorded Confirmed Insulin Glargine,Hum.rec.anlog 75 unit SQ QDBREAKFAST 01/21/14 07/25/19 [Lantus] Albuterol Sulfate [Proair Hfa 2 puffs INH Q4H PRN 07/25/19 07/25/19 Inhaler] Chlorthalidone 25 mg PO DAILY 07/25/19 07/31/19 Clobetasol Propionate/Emoll 1 applic TP ONCE PRN 07/25/19 07/25/19 [Clobetasol Emollient 0.05% Crm] Cyclobenzaprine HCl 10 mg PO TID PRN 07/25/19 07/25/19 Desvenlafaxine Succinate [Pristiq 50 mg PO DAILY 07/25/19 07/31/19 ER] LORazepam [Ativan] 1 mg PO ONCE PRN 07/25/19 07/25/19 Metformin HCl 500 mg PO BID 07/25/19 07/25/19 Rosuvastatin Calcium 5 mg PO DAILY 07/25/19 07/25/19 Spironolactone 25 mg PO BID 07/25/19 07/31/19 Triamcinolone 0.1% Cream [Kenalog 1 applic TOP BID PRN 07/25/19 07/25/19 0.1% Cream] Valsartan 160 mg PO QPM 07/25/19 07/25/19 lamoTRIgine [LaMICtal] 25 mg PO BID 07/25/19 07/31/19 Ondansetron Odt [Zofran] 4 mg TL Q6H PRN #10 tablet 07/31/19 oxyCODONE [Roxicodone] 5 mg PO Q4H PRN #20 tablet 07/31/19 - Allergies Allergies/Adverse Reactions: Allergies Allergy/AdvReac Type Severity Reaction Status Date / Time latex Allergy Intermediate Rash Verified 06/20/20 12:42 adhesive tape Allergy Rash Verified 06/20/20 12:42 Sulfa (Sulfonamide Allergy Emesis Verified 06/20/20 12:42 Antibiotics) codeine AdvReac Nausea Verified 06/20/20 12:42 diazepam [From Valium] AdvReac Nausea Verified 06/20/20 12:42 hydrocodone bitartrate * AdvReac Nausea Verified 06/20/20 12:42 [From Vicodin] - Social History Does the pt smoke?: No Smoking Status: Never smoker Does the pt drink ETOH?: No Does the pt have substance abuse?: No - Immunizations Immunizations are current?: Yes - POLST Patient has POLST: No POLST Status: Full Code PD ED PE NORMAL - Vitals Vital signs reviewed: Yes - General General: Alert and oriented X 3, No acute distress, Well developed/nourished - HEENT HEENT: Moist mucous membranes - Neck Neck: Supple, no meningeal sign - Cardiac Cardiac: RRR, Strong equal pulses - Respiratory Respiratory: No respiratory distress, Clear bilaterally - Abdomen Abdomen: Soft, Non tender, Non distended - Derm Derm: Warm and dry - Extremities Extremities: Other (mild swelling posterior aspect of the L knee. no erythema. no palpable cord. NVI. ) - Neuro Neuro: Alert and oriented X 3 - Psych Psych: Normal mood, Normal affect Results - Vitals Vitals: Vital Signs - 24 hr 06/20/20 06/20/20 12:37 14:41 Temperature 36.6 C Heart Rate 78 76 Respiratory 18 18 Rate Blood Pressure 162/75 H 119/68 O2 Saturation 100 99 Oxygen O2 Source Room air - Labs Labs: Laboratory Tests 06/20/20 06/20/20 06/20/20 12:55 13:21 13:21 WBC 8.8 RBC 4.16 L Hgb 12.8 Hct 38.4 MCV 92.3 MCH 30.8 MCHC 33.3 RDW 11.6 L Plt Count 276 MPV 10.0 Neut # (Auto) 5.5 Lymph # (Auto) 2.5 Griggs # (Auto) 0.5 Eos # (Auto) 0.2 Baso # (Auto) 0.1 Absolute Nucleated RBC 0.00 Nucleated RBC % 0.0 ESR 18 Sodium Potassium Chloride Carbon Dioxide Anion Gap BUN Creatinine Estimated GFR (MDRD) Glucose Calcium Total Bilirubin AST ALT Alkaline Phosphatase C-Reactive Protein Total Protein Albumin Globulin Albumin/Globulin Ratio Lipase Urine Color DARK YELLOW Urine Clarity CLEAR Urine pH 5.5 Ur Specific Bricelyn >=1.030 H Urine Protein NEGATIVE Urine Glucose (UA) NEGATIVE Urine Ketones NEGATIVE Urine Occult Blood NEGATIVE Urine Nitrite NEGATIVE Urine Bilirubin NEGATIVE Urine Urobilinogen 0.2 (NORMAL) Ur Leukocyte Esterase NEGATIVE Ur Microscopic Review NOT INDICATED Urine Culture Comments NOT INDICATED 06/20/20 13:21 WBC RBC Hgb Hct MCV MCH MCHC RDW Plt Count MPV Neut # (Auto) Lymph # (Auto) Griggs # (Auto) Eos # (Auto) Baso # (Auto) Absolute Nucleated RBC Nucleated RBC % ESR Sodium 136 Potassium 4.3 Chloride 100 L Carbon Dioxide 27 Anion Gap 9.0 BUN 26 H Creatinine 1.2 H Estimated GFR (MDRD) 48 L Glucose 132 H Calcium 9.8 Total Bilirubin 0.9 AST 17 ALT 25 Alkaline Phosphatase 56 C-Reactive Protein < 1.0 Total Protein 8.0 Albumin 4.4 Globulin 3.6 Albumin/Globulin Ratio 1.2 Lipase 48 Urine Color Urine Clarity Urine pH Ur Specific Bricelyn Urine Protein Urine Glucose (UA) Urine Ketones Urine Occult Blood Urine Nitrite Urine Bilirubin Urine Urobilinogen Ur Leukocyte Esterase Ur Microscopic Review Urine Culture Comments - Rads (name of study) duplex US LLE Radiology: Prelim report reviewed, EMP read contemporaneously, See rad report (no DVT, +bakers cyst) neck US Radiology: Prelim report reviewed, EMP read contemporaneously, See rad report (No focal fluid collection or visualized mass lesion. ) PD MEDICAL DECISION MAKING - ED course Complexity details: reviewed results, re-evaluated patient, considered different ial, d/w patient ED course: Unclear etiology of the patient's symptoms. She will follow-up with her doctor for the Graff's cyst. She will monitor herself for worsening of her abdominal pain. No evidence of UTI. Abdomen is soft, nontender nondistended on serial examination. No leukocytosis. Normal sed rate and CRP. No diarrhea. She will follow-up with her doctor for a recheck of this in a few days as well as to recheck the lymph node in her left neck. Patient counseled regarding signs and symptoms for which I believe and urgent re-evaluation would be necessary. Patient with good understanding of and agreement to plan and is comfortable going home at this time This document was made in part using voice recognition software. While efforts are made to proofread this document, sound alike and grammatical errors may occur. Departure - Departure Disposition: 01 Home, Self Care Clinical Impression: Swelling of lymph node Abdominal pain Qualifiers: Abdominal location: unspecified location Qualified Code(s): R10.9 - Unspecified abdominal pain Graff's cyst of knee Qualifiers: Laterality: left Qualified Code(s): M71.22 - Synovial cyst of popliteal space [Graff], left knee Condition: Good Instructions: ED Abdominal Pain Unkn Cause, ED Cyst Graff Follow-Up: Tori Cadena MD [Primary Care Provider] - Within 1 week Comments: Return if you worsen. Follow up with your doctor for further care. You do have a graff's cyst on your left knee. The cause of your abdominal pain is unclear. Return if this worsens. The lymph node swelling should decrease over the next week. Recheck with your doctor next week.
[2020-06-20 13:39] LABS: BILIRUBIN,URINE NEGATIVE (NEGATIVE); GLUCOSE, URINE (UA) NEGATIVE (NEGATIVE); KETONES,URINE (UA) NEGATIVE (NEGATIVE); LEUKOCYTE ESTERASE, URINE NEGATIVE (NEGATIVE); NITRITE,URINE NEGATIVE (NEGATIVE); OCCULT BLOOD,URINE NEGATIVE (NEGATIVE); PH,URINE 5.5 PH (5.0-7.5); PROTEIN,URINE NEGATIVE (NEGATIVE); UROBILINOGEN,URINE 0.2 (NORMAL) E.U./dL (NORMAL)
[2020-06-20 13:44] LABS: CLARITY,URINE CLEAR (CLEAR)
[2020-06-20 13:46] LABS: BASOPHILS # (AUTO) 0.1 10^3/uL (0.0-0.1); EOSINOPHILS # (AUTO) 0.2 10^3/uL (0.0-0.7); EOSINOPHILS % (AUTO) 1.8 %; HGB - HEMOGLOBIN 12.8 g/dL (12.0-16.0); LYMPHOCYTES # (AUTO) 2.5 10^3/uL (1.5-3.5); LYMPHOCYTES % (AUTO) 28.9 %; MEAN CORPUSCULAR HEMOGLOBIN 30.8 pg (27.0-31.0); MEAN CORPUSCULAR HGB CONC 33.3 g/dL (32.0-36.0); MEAN CORPUSCULAR VOLUME 92.3 fL (81.0-99.0); MONOCYTES # (AUTO) 0.5 10^3/uL (0.0-1.0); MONOCYTES % (AUTO) 5.7 %; NEUTROPHILS # (AUTO) 5.5 10^3/uL (1.5-6.6); NEUTROPHILS % (AUTO) 62.1 %; PLT - PLATELET COUNT 276 10^3/uL (130-450); RED BLOOD COUNT 4.16 10^6/uL (4.20-5.40); RED CELL DISTRIBUTION WIDTH 11.6 % (12.0-15.0); WHITE BLOOD COUNT 8.8 x10^3/uL (4.8-10.8)
[2020-06-20 14:02] LABS: ALBUMIN 4.4 g/dL (3.2-5.5); ALBUMIN/GLOBULIN RATIO 1.2 (1.0-2.2); ALKALINE PHOSPHATASE 56 IU/L (42-121); ALT ALANINE AMINOTRANSFERASE 25 IU/L (10-60); AST ASPARTATE AMINOTRANSFERASE 17 IU/L (10-42); BILIRUBIN,TOTAL 0.9 mg/dL (0.2-1.0); BUN - BLOOD UREA NITROGEN 26 mg/dL (6-20); CALCIUM 9.8 mg/dL (8.5-10.3); CARBON DIOXIDE - CO2 27 mmol/L (21-32); CHLORIDE 100 mmol/L (101-111); CREATININE 1.2 mg/dL (0.4-1.0); GLUCOSE 132 mg/dL (70-100); LIPASE 48 U/L (22-51); SODIUM 136 mmol/L (135-145)
[2020-06-20 14:12] LABS: CRP - C-REACTIVE PROTEIN < 1.0 mg/dL (0-1.0)
--- NOTE | 2020-06-20 15:14 | Ultrasound Report ---
PROCEDURE: Duplex Ext Veins Left INDICATIONS: L sided leg pain, swelling TECHNIQUE: Real-time imaging, as well as color and pulse Doppler interrogation, were performed of the lower extr emity deep veins from the inguinal ligament to the popliteal fossa. COMPARISON: None. FINDINGS: The deep veins are normally compressible, and free of intraluminal thrombus. Color and pu lse Doppler demonstrate normal phasic intraluminal flow. There is normal augmentation response to di stal compression maneuver. In the posterior calf/popliteal region there is a focus of hypoechogenicity measuring approximately 5 .7 x 2.0 x 5.8 cm. IMPRESSION: 1. No deep venous tendinosis. 2. Fluid is present within the posterior fossa most suggestive of Graff's cyst. Reviewed by: Jessica Cervantes MD on 06/20/2020 3:13 PM PDT Approved by: Jessica Cervantes MD on 06/20/2020 3:13 PM PDT Station ID: [id number]
--- NOTE | 2020-06-20 15:25 | Ultrasound Report ---
PROCEDURE: Head or Neck Soft Tissue INDICATIONS: L sided neck pain, swelling TECHNIQUE: Real time scanning was performed of the neck region of interest, with image documentation . COMPARISON: None. FINDINGS: No soft tissue neck abnormality seen bilaterally scattered lymph nodes are noted with no adenopathy by size criteria. There are no areas of architectural distortion, focal fluid collection o r abnormal mass lesion. IMPRESSION: No focal fluid collection or visualized mass lesion. Reviewed by: Jessica Cervantes MD on 06/20/2020 3:23 PM PDT Approved by: Jessica Cervantes MD on 06/20/2020 3:23 PM PDT Station ID: [id number]
[2020-06-20 16:02] VITALS: BP 133/100
== END 2020-06-20 16:02 | disposition home or self-care (01) ==
LOC: ED 12:30
DX: R59.0 Localized enlarged lymph nodes (principal); M71.22 Synovial cyst of popliteal space [Baker], left knee; R10.9 Unspecified abdominal pain; R30.0 Dysuria; I12.9 Hypertensive chronic kidney disease with stage 1 through stage 4 chronic kidney disease, or unspecified chronic kidney disease; E10.22 Type 1 diabetes mellitus with diabetic chronic kidney disease; N18.30 Chronic kidney disease, stage 3 unspecified
CPT/HCPCS: 36415; 76536; 80053; 81001; 81003; 83690; 85025; 85651; 86140; 87086; 99283; 99284

== ENCOUNTER 2020-07-29 13:51 | Outpatient (CLI) | payer MEDICAID ==
--- NOTE | 2020-07-29 21:37 | SLEEP CARE CONSULTATION ---
Information from patient questionnaire entered by Rose Joe. I have reviewed and concur with the information entered by Rose Joe. This document represents the service I personally performed and the decisions made by me, Makayla Lozoya MD, [facility]. History of Present Illness Service Date and Time: 07/29/2020 1351 Previous diagnosis: Moderate, Obstructive Sleep Apnea-Hypopnea Syndrome AHI: 16.4 Reason for follow up: first compliance Equipment obtained from: Other ([facility] (Home [facility]) Mod[employer]) [facility]: Yes [facility] Type of Sleep Study: Home sleep study HPI additional information: HPI: Ms. Khan was called today to follow up on the nasal CPAP therapy. She was diagnosed to have moderate obstructive sleep apnea-hypopnea syndrome. The patient wears with ResMed P10 nasal pillows. She reports using the device nigh tly and all through the night. The compliance data show usage in 28 out of the past 30 nights, averaging 8.6 hours a night. The > 4 hour compliance rate for the past 30 days is 90%. She complained of no particular problem with the device such as soreness on the face, dry nose, epistaxis, nasal congestion or headache. She thinks that the pressure of 4 15 cmH2O is a little too low at the beginning. On the CPAP therapy she notices improvement in her sleep quality, and that she wakes up feeling fresher in the morning and more awake/alert during the day. The [place] Sleepiness Scale score 2. Her notices no snore at all. The average residual AHI is 3.1; and average time in large leak per day is 1.7 minutes. The 90th percentile pressure 9.5 cmH2O. Sleep Study - Results Type of Sleep Study: Home sleep study Prior sleep studies: Yes [facility] Subjective Initial [place] Sleepiness Scale score: 11 (in 2004) Allergies and Home Medications Drug allergies reviewed: Yes Home medication list reviewed: Yes Review of Systems Review of systems same as previous: Yes Physical Exam Vital signs obtained and entered by: To minimize the risk of COVID-19 exposure, detailed exam was not performed. Height: 5 ft 11 in Weight: 300 lb Body Mass Index: 41.8 BMI Classification: Morbidly Obese Impression and Plan IMPRESSION: 1. Obstructive Sleep Apnea-Hypopnea Syndrome, moderate (AHI was 16.4 by a home sleep apnea test), with the patient doing well on nasal CPAP therapy. She has excellent compliance and significant clinical improvement. The current pressure appears effective. Her nasal pillows fit well. Overall, she is very satisfied with treatment and plans to continue with it long-term. For her comfort, I will raise the starting pressure to 6 cmH2O. PLAN: 1. Set the autoCPAP to 6 15 cmH2O. 2. Try to lose weight 3. Try other masks and nasal pillows. 4. Return in one year for follow up or earlier if there is any problem with the treatment. Visit Type: In Office Time Spent with Patient (minutes): 15 Provider Statement: I spent 100% of the Face to Face Visit with the patient with greater than 50% spent counseling the patient and coordination of care.
== END 2020-07-29 13:52 | disposition home or self-care (01) ==
LOC: SC 13:51
PROVIDERS: ATTEND Internal Medicine Pulmonary Disease
DX: G47.33 Obstructive sleep apnea (adult) (pediatric) (principal); E66.01 Morbid (severe) obesity due to excess calories; Z68.41 Body mass index [BMI] 40.0-44.9, adult
CPT/HCPCS: 99212; 99213

== ENCOUNTER 2020-08-26 11:00 | Outpatient (CLI) | payer MEDICAID | END 2020-08-26 11:01 | disposition home or self-care (01) | LOC: COV 11:00 | PROVIDERS: ATTEND Family Medicine | DX: R05 Cough (principal); R06.2 Wheezing; M79.10 Myalgia, unspecified site; R53.83 Other fatigue; R68.83 Chills (without fever); R07.0 Pain in throat; R19.7 Diarrhea, unspecified; R09.81 Nasal congestion; J34.89 Other specified disorders of nose and nasal sinuses; R11.2 Nausea with vomiting, unspecified; Z20.828 Contact with and (suspected) exposure to other viral communicable diseases ==

== ENCOUNTER 2021-04-24 15:22 | Outpatient (CLI) | payer MEDICAID ==
[2021-04-24 19:59] LABS: CALCIUM 9.5 mg/dL (8.5-10.3); CREATININE 1.6 mg/dL (0.4-1.0); POTASSIUM 4.4 mmol/L (3.5-5.0)
== END 2021-04-24 15:23 | disposition home or self-care (01) ==
LOC: LAB.S 15:22
PROVIDERS: ATTEND Internal Medicine Nephrology
DX: N18.31 Chronic kidney disease, stage 3a (principal); E87.5 Hyperkalemia
CPT/HCPCS: 36415; 80048; 83970

== ENCOUNTER 2021-05-08 11:17 | Outpatient (CLI) | payer MEDICAID ==
[2021-05-08 14:28] LABS: BASOPHILS # (AUTO) 0.1 10^3/uL (0.0-0.1); BASOPHILS % (AUTO) 1.1 %; EOSINOPHILS # (AUTO) 0.2 10^3/uL (0.0-0.7); EOSINOPHILS % (AUTO) 2.5 %; HCT - HEMATOCRIT 35.1 % (37.0-47.0); HGB - HEMOGLOBIN 11.2 g/dL (12.0-16.0); LYMPHOCYTES # (AUTO) 2.1 10^3/uL (1.5-3.5); MEAN CORPUSCULAR HEMOGLOBIN 30.2 pg (27.0-31.0); MEAN CORPUSCULAR HGB CONC 31.9 g/dL (32.0-36.0); MEAN CORPUSCULAR VOLUME 94.6 fL (81.0-99.0); MONOCYTES # (AUTO) 0.4 10^3/uL (0.0-1.0); MONOCYTES % (AUTO) 6.2 %; NEUTROPHILS # (AUTO) 4.3 10^3/uL (1.5-6.6); NEUTROPHILS % (AUTO) 60.1 %; PLT - PLATELET COUNT 282 10^3/uL (130-450); RED BLOOD COUNT 3.71 10^6/uL (4.20-5.40); RED CELL DISTRIBUTION WIDTH 11.9 % (12.0-15.0); WHITE BLOOD COUNT 7.1 x10^3/uL (4.8-10.8)
[2021-05-08 14:40] LABS: BILIRUBIN,URINE NEGATIVE (NEGATIVE); GLUCOSE, URINE (UA) NEGATIVE (NEGATIVE); KETONES,URINE (UA) NEGATIVE (NEGATIVE); LEUKOCYTE ESTERASE, URINE NEGATIVE (NEGATIVE); NITRITE,URINE NEGATIVE (NEGATIVE); OCCULT BLOOD,URINE NEGATIVE (NEGATIVE); PROTEIN,URINE NEGATIVE (NEGATIVE); UROBILINOGEN,URINE 0.2 (NORMAL) E.U./dL (NORMAL)
[2021-05-08 14:43] LABS: CLARITY,URINE CLEAR (CLEAR)
[2021-05-08 14:54] LABS: CALCIUM 9.5 mg/dL (8.5-10.3); CREATININE 1.4 mg/dL (0.4-1.0); PHOSPHORUS 4.4 mg/dL (2.5-4.6); POTASSIUM 4.6 mmol/L (3.5-5.0)
[2021-05-08 14:58] LABS: CREATININE,URINE 145.8 mg/dL; MICROALBUM/CREATININE RATIO,UR 17.8 ug/mg (<30.0); MICROALBUMIN,URINE 2.6 mg/dL (0-300.0)
[2021-05-08 15:11] LABS: BACTERIA,URINE Few /HPF (None Seen); RBC,URINE None Seen /HPF (0-5); SQUAMOUS EPITHELIAL CELL,UR FEW Squamous (<= Few); WBC,URINE 0-3 /HPF (0-5)
== END 2021-05-08 11:18 | disposition home or self-care (01) ==
LOC: LAB.S 11:17
PROVIDERS: ATTEND Internal Medicine Nephrology
DX: N18.31 Chronic kidney disease, stage 3a (principal); E87.5 Hyperkalemia; E55.9 Vitamin D deficiency, unspecified
CPT/HCPCS: 36415; 80048; 80069; 81001; 82043; 82306; 82570; 83970; 85025; 87086

== ENCOUNTER 2021-08-24 12:34 | Outpatient (CLI) | payer MEDICAID ==
[2021-08-24 20:20] LABS: ALBUMIN 3.9 g/dL (3.2-5.5); CALCIUM 9.1 mg/dL (8.5-10.3); CREATININE 1.4 mg/dL (0.4-1.0); PHOSPHORUS 4.1 mg/dL (2.5-4.6); POTASSIUM 4.8 mmol/L (3.5-5.0)
== END 2021-08-24 12:35 | disposition home or self-care (01) ==
LOC: LAB.S 12:34
PROVIDERS: ATTEND Internal Medicine Nephrology
DX: N18.31 Chronic kidney disease, stage 3a (principal)
CPT/HCPCS: 36415; 80069

== ENCOUNTER 2022-04-09 10:11 | Emergency (ER) | payer MEDICAID ==
--- NOTE | 2022-04-09 10:57 | ED Physician Documentation ---
PD HPI HEENT - Stated complaint Stated Complaint: FACE NUMBNESS - Chief complaint Chief Complaint: Neuro - History obtained from History obtained from: Patient - History of Present Illness Timing - onset: How many weeks ago (2) Timing - duration: Weeks (2) Timing - details: Gradual onset, Still present Location: Other (right maxillary area of face with gradual onset numbness "like when dentist gives lidocaine" but just in lower eyelid/maxilla/upper cheek, to side of nose. Right side only. Associated with mild shooting pains to right cheek. Has also had right headache and neck pain. No rash nor sores.) Improves: No: Medication (tried Aleve without improvement.) Associated symptoms: Headache. No: Fever, Congestion, Rhinorrhea, Facial swelling, Cough Similar symptoms before: Has not had sx before Recently seen: Not recently seen Review of Systems Constitutional: denies: Fever, Chills Eyes: denies: Loss of vision, Decreased vision Ears: denies: Loss of hearing, Ear pain, Drainage/discharge Nose: denies: Rhinorrhea / runny nose, Congestion Throat: denies: Sore throat Cardiac: denies: Chest pain / pressure Respiratory: denies: Dyspnea, Cough GI: denies: Nausea, Vomiting, Diarrhea Skin: denies: Rash, Lesions Neurologic: reports: Numbness. 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 : Nocturia, Other HEENT: None Psych: Depression Musculoskeletal: Fibromyalgia Derm: None - Past Surgical History Past Surgical History: Yes General: Cholecystectomy Ortho: Spine surgery /CUT IN STATION OPERATOR: Endometrial ablation, Dilation and currettage, Other HEENT: Tonsil/Adenoidectomy - Present Medications Home Medications: Ambulatory Orders Medication Instructions Recorded Confirmed Insulin Glargine,Hum.rec.anlog 75 unit SQ QDBREAKFAST 01/21/14 07/25/19 [Lantus] Albuterol Sulfate [Proair Hfa 2 puffs INH Q4H PRN 07/25/19 07/25/19 Inhaler] Chlorthalidone 25 mg PO DAILY 07/25/19 07/31/19 Clobetasol Propionate/Emoll 1 applic TP ONCE PRN 07/25/19 07/25/19 [Clobetasol Emollient 0.05% Crm] Cyclobenzaprine HCl 10 mg PO TID PRN 07/25/19 07/25/19 Desvenlafaxine Succinate [Pristiq 50 mg PO DAILY 07/25/19 07/31/19 ER] LORazepam [Ativan] 1 mg PO ONCE PRN 07/25/19 07/25/19 Metformin HCl 500 mg PO BID 07/25/19 07/25/19 Rosuvastatin Calcium 5 mg PO DAILY 07/25/19 07/25/19 Spironolactone 25 mg PO BID 07/25/19 07/31/19 Triamcinolone 0.1% Cream [Kenalog 1 applic TOP BID PRN 07/25/19 07/25/19 0.1% Cream] Valsartan 160 mg PO QPM 07/25/19 07/25/19 lamoTRIgine [LaMICtal] 25 mg PO BID 07/25/19 07/31/19 Ondansetron Odt [Zofran] 4 mg TL Q6H PRN #10 tablet 07/31/19 oxyCODONE [Roxicodone] 5 mg PO Q4H PRN #20 tablet 07/31/19 dexAMETHasone [Decadron] 4 mg PO DAILY #5 tablet 04/09/22 - Allergies Allergies/Adverse Reactions: Allergies Allergy/AdvReac Type Severity Reaction Status Date / Time latex Allergy Intermediate Rash Verified 04/09/22 10:22 adhesive tape Allergy Rash Verified 04/09/22 10:22 Sulfa (Sulfonamide Allergy Emesis Verified 04/09/22 10:22 Antibiotics) codeine AdvReac Nausea Verified 04/09/22 10:22 diazepam [From Valium] AdvReac Nausea Verified 04/09/22 10:22 hydrocodone bitartrate * AdvReac Nausea Verified 04/09/22 10:22 [From Vicodin] - Social History Does the pt smoke?: No Smoking Status: Never smoker Does the pt drink ETOH?: No Does the pt have substance abuse?: No - Immunizations Immunizations are current?: Yes - POLST Patient has POLST: No POLST Status: Full Code PD ED PE NORMAL - Vitals Vital signs reviewed: Yes - General General: Alert and oriented X 3, No acute distress, Well developed/nourished - HEENT HEENT: Atraumatic, PERRL, EOMI, Ears normal, Moist mucous membranes, Pharynx benign - Neck Neck: Supple, no meningeal sign, No adenopathy, No bruit - Cardiac Cardiac: RRR, No murmur - Respiratory Respiratory: Clear bilaterally - Derm Derm: Normal color, Warm and dry, No rash - Extremities Extremities: No deformity, No edema, No calf tenderness / cord - Neuro Neuro: Alert and oriented X 3, wet wash assembler 2-12 intact (with exception of numbness right mid face. No weakness of the face. ), No motor deficit, Normal speech, Other (decreased sensation to touch and sharp in right V2 area of face (upper cheek, lower eyelid, to side of nose). Normal sensation in tongue. ) Results - Vitals Vitals: Vital Signs - 24 hr 04/09/22 04/09/22 10:19 13:19 Temperature 36.7 C 36.7 C Heart Rate 74 71 Respiratory 16 18 Rate Blood Pressure 162/70 H 154/87 H O2 Saturation 100 100 Oxygen O2 Source Room air - Rads (name of study) head/face CT Radiology: Prelim report reviewed (no acute abnormality. Incidental bilateral proptosis. ), See rad report PD MEDICAL DECISION MAKING - ED course Complexity details: reviewed results, considered differential (numbness without weakness right V2 nerve distribution. Having some mild shooting pains. Consider trigeminal neuralgia. Did get head/face CT to ensure no obvious structural abnormal. We did discuss potential MRI but patient and I felt comfortable with not needing emergent one. ), d/w patient Departure - Departure Disposition: 01 Home, Self Care Clinical Impression: Right facial numbness, Trigeminal neuralgia of right side of face Condition: Stable Record reviewed to determine appropriate education?: Yes Instructions: ED Neuralgia Trigeminal Prescriptions: dexAMETHasone [Decadron] 4 mg PO DAILY #5 tablet Comments: Your CT scan of the face and head did not show any obvious structural abnormality. Common causes of the symptoms on the face can be an inflammatory process through the nerve (trigeminal neuralgia). Short-term we can try some steroid type anti-inflammatories over the next 5 days and see the progression of symptoms and if they resolve. Follow-up with your primary care if not improved well over the next 3 to 5 days. Return if worsening or other symptoms associated. I transmitted prescription to [facility] pharmacy in [place]. You were given a first dose of the steroid here so your next dose will be tomorrow morning. Discharge Date/Time: 04/09/22 13:23
[2022-04-09] MEDS ORDERED: DEXAMETHASONE 10 MG/ML VIAL PO STA (11:38)
[2022-04-09] MEDS ORDERED: CHERRY SYRUP 10 ML UDC PO ONE (11:38)
--- NOTE | 2022-04-09 12:13 | CT Report ---
PROCEDURE: CT brain without contrast INDICATIONS: right mid facial numbness days; occipital PALUMBO TECHNIQUE: Noncontrast 5 mm thick angled axial sections acquired from the foramen magnum to the vertex. For rad iation dose reduction, the following was used: automated exposure control, adjustment of mA and/or k V according to patient size. COMPARISON: None. FINDINGS: Image quality: Excellent. CSF spaces: Basal cisterns are patent. No extra-axial fluid collections. Ventricles are normal in size and shape. Brain: No midline shift. No intracranial masses or hemorrhage. Toney-white matter interface is norm al. Skull and face: Calvarium and visualized facial bones are intact, without suspicious lesions. Sinuses: Visualized sinuses and mastoids are clear. IMPRESSION: Normal CT brain Reviewed by: Renzo Morfin MD on 04/09/2022 11:11 AM [facility] Approved by: Renzo Morfin MD on 04/09/2022 11:11 AM [facility] Station ID: [id number]
--- NOTE | 2022-04-09 12:21 | CT Report ---
PROCEDURE: MAXILLOFACIAL WO INDICATIONS: right mid facial numbness days; occipital PALUMBO TECHNIQUE: Noncontrast 1.5 mm thick axial images acquired from the mandible through the frontal sinuses, with co driss and sagittal reformatting. For radiation dose reduction, the following was used: automated ex posure control, adjustment of mA and/or kV according to patient size. COMPARISON: None. FINDINGS: Image quality: Excellent. Bones and teeth: Orbital mercedes are intact. Incidental mild bilateral proptosis noted. Sinus mercedes s how no fracture or deformity. Nasal bones and septum are intact. Visualized portions of the mandibl e demonstrate no fractures or subluxation. Zygomatic arches are intact. Pterygoid plates are intact . Visualized portions of the skull base and auditory canals are intact. Sinuses: Paranasal sinuses are aerated, without fluid levels, mucosal thickening, or mucoceles. Mas toid air cells are aerated. Soft tissues: No edema, masses, or fluid collections. No enlarged lymph nodes. No soft tissue lace rations or debris. Vascular: Visualized vascular structures appear normal in the absence of contrast. Bony vascular fo ramina and canals are intact. IMPRESSION: Incidental bilateral proptosis. Ocular muscles unremarkable. Osseous maxillofacial structures unremarkable. Reviewed by: Renzo Morfin MD on 04/09/2022 11:20 AM [facility] Approved by: Renzo Morfin MD on 04/09/2022 11:20 AM [facility] Station ID: [id number]
[2022-04-09 13:20] VITALS: BP 154/87
== END 2022-04-09 13:23 | disposition home or self-care (01) ==
LOC: ED 10:11
DX: G50.0 Trigeminal neuralgia (principal); I10 Essential (primary) hypertension; E10.9 Type 1 diabetes mellitus without complications; Z79.4 Long term (current) use of insulin
CPT/HCPCS: 70450; 70486; 99284; A9270

== ENCOUNTER 2023-01-17 14:05 | Outpatient (CLI) | payer MEDICAID | END 2023-01-17 14:06 | disposition home or self-care (01) | LOC: CAM 14:05 | PROVIDERS: ATTEND Family Medicine | DX: M25.511 Pain in right shoulder (principal); M25.611 Stiffness of right shoulder, not elsewhere classified; M54.2 Cervicalgia; M62.89 Other specified disorders of muscle; G89.29 Other chronic pain | CPT/HCPCS: 97810; 97811 ==

== ENCOUNTER 2023-01-24 13:48 | Outpatient (CLI) | payer MEDICAID | END 2023-01-24 13:49 | disposition home or self-care (01) | LOC: CAM 13:48 | PROVIDERS: ATTEND Family Medicine | DX: M25.511 Pain in right shoulder (principal); M54.2 Cervicalgia; M62.89 Other specified disorders of muscle; M25.611 Stiffness of right shoulder, not elsewhere classified; G89.29 Other chronic pain | CPT/HCPCS: 97810; 97811 ==

== ENCOUNTER 2023-02-07 13:42 | Outpatient (CLI) | payer MEDICAID | END 2023-02-07 13:43 | disposition home or self-care (01) | LOC: CAM 13:42 | PROVIDERS: ATTEND Family Medicine | DX: M25.611 Stiffness of right shoulder, not elsewhere classified (principal); M25.511 Pain in right shoulder; G89.29 Other chronic pain; M54.2 Cervicalgia; M62.89 Other specified disorders of muscle | CPT/HCPCS: 97813; 97814 ==

== ENCOUNTER 2023-03-28 13:06 | Outpatient (CLI) | payer MEDICAID | END 2023-03-28 13:07 | disposition home or self-care (01) | LOC: CAM 13:06 | PROVIDERS: ATTEND Family Medicine | DX: M25.511 Pain in right shoulder (principal); G89.29 Other chronic pain; M54.2 Cervicalgia; M25.611 Stiffness of right shoulder, not elsewhere classified; M62.89 Other specified disorders of muscle | CPT/HCPCS: 97810; 97811 ==

== ENCOUNTER 2023-04-04 12:50 | Outpatient (CLI) | payer MEDICAID | END 2023-04-04 12:51 | disposition home or self-care (01) | LOC: CAM 12:50 | PROVIDERS: ATTEND Family Medicine | DX: M25.611 Stiffness of right shoulder, not elsewhere classified (principal); M25.511 Pain in right shoulder; G89.29 Other chronic pain; M54.2 Cervicalgia; M62.89 Other specified disorders of muscle | CPT/HCPCS: 97810; 97811 ==

== ENCOUNTER 2023-04-11 12:53 | Outpatient (CLI) | payer MEDICAID | END 2023-04-11 12:54 | disposition home or self-care (01) | LOC: CAM 12:53 | PROVIDERS: ATTEND Family Medicine | DX: M25.611 Stiffness of right shoulder, not elsewhere classified (principal); M25.511 Pain in right shoulder; G89.29 Other chronic pain; M54.2 Cervicalgia; M62.89 Other specified disorders of muscle | CPT/HCPCS: 97813; 97814 ==

== ENCOUNTER 2023-04-18 13:11 | Outpatient (CLI) | payer MEDICAID | END 2023-04-18 13:12 | disposition home or self-care (01) | LOC: CAM 13:11 | PROVIDERS: ATTEND Family Medicine | DX: M25.611 Stiffness of right shoulder, not elsewhere classified (principal); M25.511 Pain in right shoulder; G89.29 Other chronic pain; M54.2 Cervicalgia; M62.89 Other specified disorders of muscle | CPT/HCPCS: 97813; 97814 ==

== ENCOUNTER 2023-05-06 10:12 | Outpatient (CLI) | payer MEDICAID ==
[2023-05-06 14:50] LABS: CHOL/HDL RATIO 6.9 (<4.4); CHOLESTEROL 243 mg/dL; HDL CHOLESTEROL 35 mg/dL; TRIGLYCERIDES 540 mg/dL (48-352)
[2023-05-06 15:17] LABS: ESTIMATED AVERAGE GLUCOSE 134 mg/dL (70-100); HEMOGLOBIN A1c% 6.3 % (4.27-6.07)
[2023-05-06 16:10] LABS: LDL CHOLESTEROL,DIRECT 101 mg/dL (75-193); LDLD/HDL RATIO 2.9 (<4.4)
== END 2023-05-06 10:13 | disposition home or self-care (01) ==
LOC: LAB.S 10:12
PROVIDERS: ATTEND Family Medicine
DX: E78.2 Mixed hyperlipidemia (principal); E11.22 Type 2 diabetes mellitus with diabetic chronic kidney disease; N18.30 Chronic kidney disease, stage 3 unspecified; Z79.4 Long term (current) use of insulin
CPT/HCPCS: 36415; 80061; 83036; 83721

== ENCOUNTER 2023-09-28 08:00 | Outpatient (CLI) | payer MEDICAID ==
--- NOTE | 2023-09-28 13:13 | XRAY Report ---
PROCEDURE: Chest 2V INDICATIONS: ACUTE BRONCHITIS TECHNIQUE: 2 views of the chest were acquired. COMPARISON: Chest x-ray 10/25/2018 FINDINGS: Surgical changes and devices: None. Lungs and pleura: No pleural effusions or pneumothorax. Lungs are clear. Mediastinum: Mediastinal contours appear normal. Heart size is normal. Bones and chest wall: No suspicious bony lesions. Overlying soft tissues appear unremarkable. IMPRESSION: No acute cardiopulmonary process. Reviewed by: Jessica Cervantes MD on 09/28/2023 1:11 PM [facility] Approved by: Jessica Cervantes MD on 09/28/2023 1:11 PM [facility] Station ID: [id number]
== END 2023-09-28 23:59 | disposition home or self-care (01) ==
LOC: DI.S 08:00
PROVIDERS: ATTEND Physician Assistant Medical
DX: J20.9 Acute bronchitis, unspecified (principal)